=== PATIENT | male | born 1975 | race Caucasian/White ===

== ENCOUNTER 2021-03-20 11:54 | Inpatient (IN) ==
[2021-03-20] MEDS ORDERED: 0.9 % SODIUM CHLORIDE 1,000 ML IV ONE (12:14)
--- NOTE | 2021-03-20 12:45 | XRay Report ---
INDICATION: SOB, covid positive TECHNIQUE: AP portable chest x-ray COMPARISON: None FINDINGS: Lungs:Bilateral poorly defined pulmonary parenchymal infiltrates. Appearance is consistent with interstitial pneumonia and covid is most likely. No dense consolidation. No pulmonary parenchymal mass. Heart, vascular:No significant cardiomegaly. Pulmonary vascularity is normal. No pulmonary edema or pulmonary congestion Mediastinum, juan miguel:No mediastinal widening. No hilar mass Pleura:No pleural fluid. No pleural-based mass or calcification. There is elevation of the right hemidiaphragm Skeletal:Negative. IMPRESSION: Bilateral poorly defined pulmonary parenchymal infiltrates consistent with covid pneumonia Interpreted and Authenticated by: Roland Winters 03/20/21
--- NOTE | 2021-03-20 12:50 | Emergency Department Note ---
SOB HPI General Chief Complaint: Shortness of Breath/Dyspnea Stated Complaint: short of breath Time Seen by Provider: 03/20/21 12:14 Source: patient Mode of arrival: ambulatory Limitations: no limitations History of Present Illness HPI Narrative: Narrative: 45-year-old male presents emergency department with complaints of shortness of breath on exertion. He was diagnosed with COVID-19 on March 13, 2021 since other people in his family had tested positive. 2 days later on March 15 he started to develop a severe headache. That lasted about 2 days and had been doing okay and then this morning he woke up with a pressure in his chest which only manifest when he exerts himself by walking around. He also has developed a dry cough. He endorses anorexia. Otherwise he denies any other symptoms including feeling fever at home, chest pain, abdominal pain, nausea, vomiting, diarrhea, productive cough, hematemesis, calf pain. He takes multivitamins but does not take any prescription medication. He has not been to a primary care provider and about 14 years or so. Did not receive a COVID-19 vaccine. Related Data Home Medications Medication Instructions Recorded Confirmed No Known Home Meds 03/20/21 03/20/21 Allergies Allergy/AdvReac Type Severity Reaction Status Date / Time No Known Drug Allergies Allergy Verified 03/20/21 18:07 Review of Systems ROS ROS Narrative: Narrative: All systems ED: reviewed and negative except as stated. Cardiovascular: Reports dyspnea on exertion PFSH Narrative Patient History Narrative: Narrative: Medical/Surgical/Family History All Active Problems (Updated 03/20/21 @ 16:53 by David Reyes PA-C) Hypoxia (Acute) Pneumonia due to COVID-19 virus (Acute) Social History Smoking Status: Never smoker Exam Narrative Narrative: Narrative: General Limitations: no limitations Respiratory Respiratory: Present other (Bilateral lower lobe Rales. No respiratory distress on 4 L nasal cannula.) Cardiovascular Cardiovascular: Present regular rate, normal rhythm and normal heart sounds Adbominal Abdominal: Present other (Abdomen is soft, nontender no rebound tenderness no guarding) Extremities Extremities: Present other (There is no calf tenderness with palpation. No unilateral leg swelling or erythema) Neurological Neurological: Present alert and oriented X3 Psychiatric Psychiatric: Present normal affect and normal mood Skin Skin: Present warm (WNL), dry and normal color Course Vital Signs Vital signs: Vital Signs Temperature 102.1 F H 03/20/21 11:56 Pulse Rate 121 H 03/20/21 11:56 Respiratory Rate 20 03/20/21 11:56 Blood Pressure 165/97 03/20/21 11:56 Pulse Oximetry (%) 88 L 03/20/21 11:56 Temperature 97.0 F 03/20/21 17:34 Pulse Rate 102 H 03/20/21 17:43 Respiratory Rate 14 03/20/21 17:43 Blood Pressure 137/95 03/20/21 17:34 Pulse Oximetry (%) 94 03/20/21 17:43 [facility] MDM Narrative Medical decision making narrative: Narrative: Since patient requires additional supplemental oxygen he is not a candidate for the monoclonal antibody treatment. With needing 4 L to maintain at 93% he is defined as at least moderate severity disease and he warrants hospitalization. I have ordered dexamethasone and remdesivir. Chest x-ray shows bilateral poorly defined pulmonary parenchymal infiltrates consistent with covid pneumonia. White blood cell count normal Procalcitonin is elevated that could suggest a bacterial infection-I will leave it up to the hospitalist if he wants to do antibiotics Lactate is normal no signs of sepsis CMP sodium correction for hypoglycemia is 130 with the Pooja correction. I spoke with the hospitalist who said that he would be happy to admit the patient when they had a bed available. He will in the meantime come down to evaluate the patient in the emergency department. Patient will be admitted for further evaluation and treatment for Covid pneumonia. Lab Data Result diagrams: 03/20/21 12:38 03/20/21 13:50 Labs: Lab Results 03/20/21 03/20/21 03/20/21 Range/Units 12:38 12:38 12:38 WBC 5.7 (4.5-11.0) K/mcL RBC 4.99 (4.50-5.90) M/mcL Hgb 15.8 (13.5-16.5) g/dL Hct 42.5 (41.0-55.0) % MCV 85.2 (80.0-100.0) fL MCH 31.7 (26.0-34.0) pg MCHC 37.2 H (31.0-36.0) g/dL RDW 11.2 L (11.5-14.5) % Plt Count 153 (140-440) K/mcL MPV 11.1 H (7.4-10.4) fL Neut % (Auto) 85.5 H (38.0-78.0) % Lymph % (Auto) 8.3 L (15.0-49.0) % [place] % (Auto) 6.0 (1.0-12.0) % Eos % (Auto) 0 (0.0-7.0) % Baso % (Auto) 0.2 (0.0-2.0) % Lymph # (Auto) 0.47 L (1.50-4.80) K/mcL [place] # (Auto) 0.34 (0.10-0.90) K/mcL Eos # (Auto) 0 (0.00-0.70) K/mcL Baso # (Auto) 0.01 (0.00-0.20) K/mcL Absolute Neutrophils 4.83 (1.80-8.00) K/mcL PT INR D-Dimer Sodium TNP Potassium TNP Chloride TNP Carbon Dioxide TNP Anion Gap TNP BUN TNP Creatinine TNP GFR Calculation TNP Glucose TNP Hemoglobin A1c (4.0-6.0) % Hgb Estim Average Glucose mg/dL Osmolality (280-300) mOSM/kg Calcium TNP Ferritin (30.0-400.0) ng/mL Total Bilirubin TNP AST TNP ALT TNP Alkaline Phosphatase TNP Total Creatine Kinase (24-195) U/L Troponin T C-Reactive Protein (0.03-0.80) mg/dL NT-Pro-B Natriuret Pep 28.7 (<125.0) pg/mL Total Protein TNP Albumin TNP Globulin TNP Albumin/Globulin Ratio TNP Procalcitonin 0.27 H (<0.10) ng/mL TSH (0.27-5.01) uIU/mL 03/20/21 03/20/21 03/20/21 Range/Units 12:38 12:38 12:38 WBC (4.5-11.0) K/mcL RBC (4.50-5.90) M/mcL Hgb (13.5-16.5) g/dL Hct (41.0-55.0) % MCV (80.0-100.0) fL MCH (26.0-34.0) pg MCHC (31.0-36.0) g/dL RDW (11.5-14.5) % Plt Count (140-440) K/mcL MPV (7.4-10.4) fL Neut % (Auto) (38.0-78.0) % Lymph % (Auto) (15.0-49.0) % [place] % (Auto) (1.0-12.0) % Eos % (Auto) (0.0-7.0) % Baso % (Auto) (0.0-2.0) % Lymph # (Auto) (1.50-4.80) K/mcL [place] # (Auto) (0.10-0.90) K/mcL Eos # (Auto) (0.00-0.70) K/mcL Baso # (Auto) (0.00-0.20) K/mcL Absolute Neutrophils (1.80-8.00) K/mcL PT TNP INR TNP D-Dimer TNP Sodium Potassium Chloride Carbon Dioxide Anion Gap BUN Creatinine GFR Calculation Glucose Hemoglobin A1c 10.9 H (4.0-6.0) % Hgb Estim Average Glucose 266 mg/dL Osmolality (280-300) mOSM/kg Calcium Ferritin 1174.0 H (30.0-400.0) ng/mL Total Bilirubin AST ALT Alkaline Phosphatase Total Creatine Kinase 129 (24-195) U/L Troponin T TNP C-Reactive Protein 12.90 H (0.03-0.80) mg/dL NT-Pro-B Natriuret Pep (<125.0) pg/mL Total Protein Albumin Globulin Albumin/Globulin Ratio Procalcitonin (<0.10) ng/mL TSH 0.60 (0.27-5.01) uIU/mL 03/20/21 03/20/21 03/20/21 Range/Units 12:38 13:50 13:50 WBC (4.5-11.0) K/mcL RBC (4.50-5.90) M/mcL Hgb (13.5-16.5) g/dL Hct (41.0-55.0) % MCV (80.0-100.0) fL MCH (26.0-34.0) pg MCHC (31.0-36.0) g/dL RDW (11.5-14.5) % Plt Count (140-440) K/mcL MPV (7.4-10.4) fL Neut % (Auto) (38.0-78.0) % Lymph % (Auto) (15.0-49.0) % [place] % (Auto) (1.0-12.0) % Eos % (Auto) (0.0-7.0) % Baso % (Auto) (0.0-2.0) % Lymph # (Auto) (1.50-4.80) K/mcL [place] # (Auto) (0.10-0.90) K/mcL Eos # (Auto) (0.00-0.70) K/mcL Baso # (Auto) (0.00-0.20) K/mcL Absolute Neutrophils (1.80-8.00) K/mcL PT INR D-Dimer Sodium 126 L Potassium 3.5 Chloride 93 L Carbon Dioxide 18 L Anion Gap 15.0 BUN 11 Creatinine 0.5 L GFR Calculation 129 Glucose 247 H Hemoglobin A1c (4.0-6.0) % Hgb Estim Average Glucose mg/dL Osmolality 272 L (280-300) mOSM/kg Calcium 7.7 L Ferritin (30.0-400.0) ng/mL Total Bilirubin 0.5 AST 31 ALT 27 Alkaline Phosphatase 62 Total Creatine Kinase (24-195) U/L Troponin T < 0.01 C-Reactive Protein (0.03-0.80) mg/dL NT-Pro-B Natriuret Pep 28.1 (<125.0) pg/mL Total Protein 5.9 Albumin 3.2 Globulin 2.7 Albumin/Globulin Ratio 1.2 Procalcitonin (<0.10) ng/mL TSH (0.27-5.01) uIU/mL 03/20/21 Range/Units 16:28 WBC (4.5-11.0) K/mcL RBC (4.50-5.90) M/mcL Hgb (13.5-16.5) g/dL Hct (41.0-55.0) % MCV (80.0-100.0) fL MCH (26.0-34.0) pg MCHC (31.0-36.0) g/dL RDW (11.5-14.5) % Plt Count (140-440) K/mcL MPV (7.4-10.4) fL Neut % (Auto) (38.0-78.0) % Lymph % (Auto) (15.0-49.0) % [place] % (Auto) (1.0-12.0) % Eos % (Auto) (0.0-7.0) % Baso % (Auto) (0.0-2.0) % Lymph # (Auto) (1.50-4.80) K/mcL [place] # (Auto) (0.10-0.90) K/mcL Eos # (Auto) (0.00-0.70) K/mcL Baso # (Auto) (0.00-0.20) K/mcL Absolute Neutrophils (1.80-8.00) K/mcL PT 13.7 INR 1.0 D-Dimer 1.32 H Sodium Potassium Chloride Carbon Dioxide Anion Gap BUN Creatinine GFR Calculation Glucose Hemoglobin A1c (4.0-6.0) % Hgb Estim Average Glucose mg/dL Osmolality (280-300) mOSM/kg Calcium Ferritin (30.0-400.0) ng/mL Total Bilirubin AST ALT Alkaline Phosphatase Total Creatine Kinase (24-195) U/L Troponin T C-Reactive Protein (0.03-0.80) mg/dL NT-Pro-B Natriuret Pep (<125.0) pg/mL Total Protein Albumin Globulin Albumin/Globulin Ratio Procalcitonin (<0.10) ng/mL TSH (0.27-5.01) uIU/mL EKG Data EKG #1: EKG results narrative: ECG shows a sinus tachycardia, left axis deviation, normal SC interval narrow QRS normal QTC. There is no signs of Brugada, Dvehl-Addmpjzoj-Dedrm or HOCM. There is no ST segment deviations or hyperacute T waves. My interpretation is sinus tachycardia. Discharge Plan Patient/Caregiver Discharge Instructions Pt seen by RISK CONTROL DIRECTOR/PA only: Yes Clinical Impression: Hypoxia, Pneumonia due to COVID-19 virus Patient Disposition: Xfer As Inpt ([facility]) Condition: Fair Discharge Date/Time: 03/20/21 17:20
[2021-03-20] MEDS ORDERED: DEXAMETHASONE 10 MG/ML VIAL IV ONE (13:01)
[2021-03-20] MEDS ORDERED: REMDESIVIR 200 MG in 0.9 % SODIUM CHLORIDE 250 ML IV ONE (13:01)
[2021-03-20 13:19] LABS: Basophils # (Auto) 0.01 K/mcL (0.00-0.20); Basophils % (Auto) 0.2 % (0.0-2.0); Eosinophils # (Auto) 0 K/mcL (0.00-0.70); Eosinophils % (Auto) 0 % (0.0-7.0); Hematocrit 42.5 % (41.0-55.0); Hemoglobin 15.8 g/dL (13.5-16.5); Lymphocytes # (Auto) 0.47 K/mcL (1.50-4.80); Lymphocytes % (Auto) 8.3 % (15.0-49.0); Mean Cell Volume 85.2 fL (80.0-100.0); Mean Corpuscular HGB Conc 37.2 g/dL (31.0-36.0); Mean Platelet Volume 11.1 fL (7.4-10.4); Monocytes # (Auto) 0.34 K/mcL (0.10-0.90); Neutrophils % (Auto) 85.5 % (38.0-78.0); Platelet Count 153 K/mcL (140-440); RBC 4.99 M/mcL (4.50-5.90); Red Cell Distribution Width 11.2 % (11.5-14.5); WBC 5.7 K/mcL (4.5-11.0)
[2021-03-20 13:38] LABS: proBNP 28.7 pg/mL (<125.0)
[2021-03-20 14:51] LABS: proBNP 28.1 pg/mL (<125.0)
[2021-03-20 14:54] LABS: ALT/SGPT 27 U/L (<40); AST/SGOT 31 U/L (<40); Albumin 3.2 gm/dL (3.2-5.2); Albumin/Globulin Ratio 1.2 (1.0-2.3); Alkaline Phosphatase 62 U/L (39-117); Bilirubin,Total 0.5 mg/dL (0.1-1.0); Blood Urea Nitrogen 11 mg/dL (6-20); Calcium 7.7 mg/dL (8.6-10.4); Carbon Dioxide 18 mmol/L (22-30); Chloride 93 mmol/L (96-108); Globulin 2.7 gm/dL (2.2-3.7); Glomerular Filtration Rate 129; Glucose 247 mg/dL (70-105)
--- NOTE | 2021-03-20 15:35 | Internal Med History&Physical ---
HPI History of Present Illness Patient information: Note initiated : 03/20/21 at 3:33 pm Service Date, if different from initiated Date: [] Patient: Roland Lamas 45 y/o M admitted on for short of breath. Chief Complaint: [] History of present illness: Mr. Lamas is a 45 year old M Patient presents to ED with fever cough shortness of breath. He was diagnosed on March 13 with COVID-19 and has other family members tested positive as well. Several days later developed headache and in the past few days has the previously mentioned complaints. In the ED is on 4 L of oxygen with sats mid 90s. Labs also show hyponatremia and hyperglycemia. Patient denies history of diabetes. Also hypertensive and denies history of hypertension. The patient has not seen a PCP in 14 years. No leukocytosis but does have a mildly elevated procalcitonin. Review of Systems: Pertinent positives as above. Denies nausea/vomiting/chest or abdominal pain/diarrhea. Remaining 10 point review of system reviewed negative. PFSH PFSH All Active Problems (Updated 03/20/21 @ 16:53 by David Reyes PA-C) Hypoxia (Acute) Pneumonia due to COVID-19 virus (Acute) MEDS/ALLERGIES Home Medications and Allergies Allergies Allergy/AdvReac Type Severity Reaction Status Date / Time No Known Drug Allergies Allergy Verified 03/20/21 12:01 EXAM Constitutional Vitals: Temp Pulse Resp BP Pulse Ox 102.1 F H 116 H 16 152/84 94 03/20/21 11:56 03/20/21 14:36 03/20/21 14:36 03/20/21 14:30 03/20/21 14:36 Exam: General: Alert, Awake, No acute Distress Eyes/N/T: EOMI, PERRL, Head/Neck: neck supple, normocephalic atraumatic CV: RRR, No murmurs, normal s1/s2 Pulm: Mild fine rales b/l, no wheezing Abd: soft, nontender, +BS x4 Ext: no clubbing/cyanosis/edema Neuro: Alert, no focal deficits, moves all extremities, CN 2-12 grossly intact, symmetrical strength b/l upper/lower, sensations intact b/l upper/lower Skin: warm/dry DATA Data Completed and Pending Labs: Labs from last 24 hours 03/20/21 03/20/21 03/20/21 13:50 13:50 12:38 WBC RBC Hgb Hct MCV MCH MCHC RDW Plt Count MPV Neut % (Auto) Lymph % (Auto) [place] % (Auto) Eos % (Auto) Baso % (Auto) Lymph # (Auto) [place] # (Auto) Eos # (Auto) Baso # (Auto) Absolute Neutrophils Sodium 126 L Potassium 3.5 Chloride 93 L Carbon Dioxide 18 L Anion Gap 15.0 BUN 11 Creatinine 0.5 L GFR Calculation 129 Glucose 247 H Calcium 7.7 L Total Bilirubin 0.5 AST 31 ALT 27 Alkaline Phosphatase 62 Troponin T < 0.01 TNP NT-Pro-B Natriuret Pep 28.1 Total Protein 5.9 Albumin 3.2 Globulin 2.7 Albumin/Globulin Ratio 1.2 Procalcitonin 03/20/21 03/20/21 03/20/21 12:38 12:38 12:38 WBC 5.7 RBC 4.99 Hgb 15.8 Hct 42.5 MCV 85.2 MCH 31.7 MCHC 37.2 H RDW 11.2 L Plt Count 153 MPV 11.1 H Neut % (Auto) 85.5 H Lymph % (Auto) 8.3 L [place] % (Auto) 6.0 Eos % (Auto) 0 Baso % (Auto) 0.2 Lymph # (Auto) 0.47 L [place] # (Auto) 0.34 Eos # (Auto) 0 Baso # (Auto) 0.01 Absolute Neutrophils 4.83 Sodium TNP Potassium TNP Chloride TNP Carbon Dioxide TNP Anion Gap TNP BUN TNP Creatinine TNP GFR Calculation TNP Glucose TNP Calcium TNP Total Bilirubin TNP AST TNP ALT TNP Alkaline Phosphatase TNP Troponin T NT-Pro-B Natriuret Pep 28.7 Total Protein TNP Albumin TNP Globulin TNP Albumin/Globulin Ratio TNP Procalcitonin 0.27 H A/P Narrative A/P Narrative: A: *Covid pneumonia: *Acute hypoxic respiratory failure: -on 4L O2 in ED *Hyponatremia: *Hyperglycemia & Diabetes (new diagnosis): No history of diabetes -A1c 10.9 -has not seen a pcp in 14-years *Hypertension: Undiagnosed -has not seen a pcp in 14-years P: -Rem/Dex -empiric abx -O2 supp, wean -prone positioning -IS/Acapella/RT, prn nebs -check inflammatory labs -SSI, start metformin, DM education, may need insulin therapy -monitor BP, may need med at d/c - -establish with PCP -ppx: lovenox Time Spent With Patient Time: Total time spent is greater than 50% in coordination of care (as documented) at patient's floor/unit and/or counseling patient:
[2021-03-20 16:23] LABS: C-Reactive Protein 12.9 mg/dL (0.03-0.80); Thyroid Stimulating Hormone 0.6 uIU/mL (0.27-5.01)
[2021-03-20 17:08] LABS: Prothrombin Time 13.7 sec (11.9-14.5)
[2021-03-20 17:10] LABS: Hemoglobin A1C 10.9 % Hgb (4.0-6.0)
[2021-03-20] MEDS ORDERED: INSULIN LISPRO 1 UNIT/0.01 ML UNIT SQ SCH (17:20)
[2021-03-20] MEDS ORDERED: CALCIUM GLUCONATE 4.65 MEQ in DEXTROSE 5% IN WATER 50 ML IV ONE (17:20)
[2021-03-20] MEDS ORDERED: cefTRIAXone 2 GM in DEXTROSE 5% IN WATER 50 ML IV SCH ×2 (17:20→18:00)
[2021-03-20] MEDS ORDERED: 0.9 % SODIUM CHLORIDE 1,000 ML IV SCH (17:20)
[2021-03-20] MEDS ORDERED: DEXTROSE 31 GM ORAL.SUSP PO PRN (17:20)
[2021-03-20] MEDS ORDERED: ONDANSETRON 4 MG/2 ML VIAL IV PRN (17:20)
[2021-03-20] MEDS ORDERED: REMDESIVIR 100 MG in 0.9 % SODIUM CHLORIDE 250 ML IV SCH (17:20)
[2021-03-20] MEDS ORDERED: ACETAMINOPHEN 325 MG TABLET PO PRN (17:20)
[2021-03-20] MEDS ORDERED: POTASSIUM CHLORIDE 40 MEQ in DEXTROSE 5% IN WATER 500 ML IV PRN (17:20)
[2021-03-20] MEDS ORDERED: POLYETHYLENE GLYCOL 3350 17 GM PACKET PO PRN (17:20)
[2021-03-20] MEDS ORDERED: MAGNESIUM SULFATE 2 GM/50 ML BAG IV PRN (17:20)
[2021-03-20] MEDS ORDERED: POTASSIUM CHLORIDE 20 MEQ TABLET PO PRN (17:20)
[2021-03-20] MEDS ORDERED: SENNOSIDES 1 TABLET PO PRN (17:20)
[2021-03-20] MEDS ORDERED: AZITHROMYCIN 500 MG in DEXTROSE 5% IN WATER 250 ML IV SCH (17:20)
[2021-03-20] MEDS ORDERED: DEXTROSE 50% 50 ML VIAL IV PRN (17:20)
[2021-03-20] MEDS ORDERED: IPRATROPIUM/ALBUTEROL 3 ML AMPUL.NEB NEB PRN (17:20)
--- NOTE | 2021-03-20 17:29 | EKG ---
[facility] Test Date: 2021-03-20 Pat Name: Roland Lamas Department: ED Room: Gender: Male Manager Of Radiology: TAMARA : 1975 Requested By: Patrice Galloway Order Number: [id number] Reading MD: Mynor Britt M.D. Measurements Intervals [address] Rate: 119 P: 46 DC: 180 QRS: -52 QRSD: 90 T: 36 QT: 312 QTc: 439 Interpretive Statements SINUS TACHYCARDIA LEFT ANTERIOR FASCICULAR BLOCK CONSIDER ANTERIOR INFARCT NO PRIOR TRACING FOR COMPARISON ABNORMAL ECG Electronically Signed On 03-20-2021 17:29:07 PDT by Mynor Britt M.D. /store/[email or web address]/[id number]
[2021-03-20] MEDS: AZITHROMYCIN 500 MG in DEXTROSE 5% IN WATER 250 ML IV SCH (17:45)
[2021-03-20] MEDS: INSULIN LISPRO 1 UNIT/0.01 ML UNIT SQ SCH ×2 (17:55→21:29)
[2021-03-20] MEDS: POTASSIUM CHLORIDE 20 MEQ TABLET PO PRN (21:20)
[2021-03-20] MEDS: 0.9 % SODIUM CHLORIDE 10 ML SYRINGE IV SCH (21:52)
[2021-03-21] MEDS: INSULIN LISPRO 1 UNIT/0.01 ML UNIT SQ SCH ×6 (01:10→21:05)
[2021-03-21] MEDS: 0.9 % SODIUM CHLORIDE 10 ML SYRINGE IV SCH ×3 (05:36→20:56)
[2021-03-21 07:08] LABS: Hemoglobin 14.1 g/dL (13.5-16.5); Mean Cell Volume 87.5 fL (80.0-100.0); Mean Corpuscular HGB Conc 35.3 g/dL (31.0-36.0); Mean Platelet Volume 10.3 fL (7.4-10.4); Platelet Count 151 K/mcL (140-440); RBC 4.57 M/mcL (4.50-5.90); Red Cell Distribution Width 11.5 % (11.5-14.5); WBC 4.5 K/mcL (4.5-11.0)
--- NOTE | 2021-03-21 07:37 | Internal Med Progress Note ---
SUBJECTIVE Subjective Patient information: Note initiated : 03/21/21 at 7:33 am Service Date, if different from initiated Date: [] Patient: Roland Lamas 45 y/o M admitted on 03/20/21 for short of breath. Chief Complaint: [] Interval history: History of present illness: Mr. Lamas is a 45 year old M Patient presents to ED with fever cough shortness of breath. He was diagnosed on March 13 with COVID-19 and has other family members tested positive as well. Several days later developed headache and in the past few days has the previously mentioned complaints. In the ED is on 4 L of oxygen with sats mid 90s. Labs also show hyponatremia and hyperglycemia. Patient denies history of diabetes. Also hypertensive and denies history of hypertension. The patient has not seen a PCP in 14 years. No leukocytosis but does have a mildly elevated procalcitonin. 8/ states he feels about the same as yesterday. On 3.5 L nasal cannula but desats with exertion. Minimal cough. Newly diagnosed diabetes. Review of Systems: denies headache/fever/chills/nausea/vomiting/chest or abdominal pain/diarrhea. Otherwise see above. Constitutional Vitals: Vital Signs Temp Pulse Resp BP Pulse Ox 97.2 F 77 14 142/80 92 03/21/21 01:01 03/21/21 05:01 03/21/21 05:01 03/21/21 05:01 03/21/21 05:01 Period Temp Pulse Resp BP Sys/[place] Pulse Ox Last 24 Hr 97.0 F-102.1 F 77-122 10-37 112-172/76-103 88-96 Intake and Output 03/20/21 03/21/21 03/21/21 21:59 05:59 13:59 Intake Total 1760 850 Output Total 1500 700 Balance 260 150 Weight 119.295 kg Intake & Output: Intake & Output 03/20/21 03/21/21 03/21/21 21:59 05:59 13:59 Intake Total 1760 850 Output Total 1500 700 Balance 260 150 Weight 119.295 kg Intake: IV 1610 Sodium Chloride 0.9% 1,000 ml @ 1000 Wide Open IV .Q0M ONE Rx#: [id number] Zithromax 500 mg In Dextrose 5% 250 in Water 250 ml @ 250 mls/hr IV DAILY MANJIT Rx#:[id number] Calcium Gluconate 4.65 Meq In 60 Dextrose 5% in Water 50 ml @ 100 mls/hr IV ONCE ONE Rx#: [id number] Veklury 200 mg In Sodium 250 Chloride 0.9% 250 ml @ 500 mls/ hr IV ONCE ONE Rx#:[id number] Rocephin 2 gm In Dextrose 5% in 50 Water 50 ml @ 100 mls/hr IV DAILY [facility] Rx#:[id number] Oral 150 850 Output: Void Amount 1500 700 Other: Urine Appearance Clear Clear Urine Color Pale Pale Urine Odor Normal Normal Stool Size Moderate Stool Color Brown Stool Consistency Soft # Bowel Movements 1 # of times incontinent of 0 Bowels Exam: General: Alert, Awake, No acute Distress Eyes/N/T: EOMI, , Head/Neck: neck supple, CV: RRR, No murmurs, Pulm: Mild fine rales b/l, no wheezing Abd: soft, nontender, +BS x4 Ext: no clubbing/cyanosis/edema Neuro: Alert, no focal deficits, moves all extremities, Skin: warm/dry OBJ DATA Labs CBC & Chem 7: 03/21/21 05:31 03/21/21 05:30 Labs: Abnormal Lab Results 03/21/21 03/20/21 03/20/21 05:31 16:28 13:50 Hct 40.0 L MCHC RDW MPV Neut % (Auto) Lymph % (Auto) Lymph # (Auto) D-Dimer 1.32 H Sodium 126 L Chloride 93 L Carbon Dioxide 18 L Creatinine 0.5 L Glucose 247 H Hemoglobin A1c Osmolality Calcium 7.7 L Ferritin C-Reactive Protein Procalcitonin 03/20/21 03/20/21 03/20/21 12:38 12:38 12:38 Hct MCHC RDW MPV Neut % (Auto) Lymph % (Auto) Lymph # (Auto) D-Dimer Sodium Chloride Carbon Dioxide Creatinine Glucose Hemoglobin A1c 10.9 H Osmolality 272 L Calcium Ferritin 1174.0 H C-Reactive Protein 12.90 H Procalcitonin 0.27 H 03/20/21 12:38 Hct MCHC 37.2 H RDW 11.2 L MPV 11.1 H Neut % (Auto) 85.5 H Lymph % (Auto) 8.3 L Lymph # (Auto) 0.47 L D-Dimer Sodium Chloride Carbon Dioxide Creatinine Glucose Hemoglobin A1c Osmolality Calcium Ferritin C-Reactive Protein Procalcitonin Meds: Medications Acetaminophen (Acetaminophen 325 Mg Tablet) 650 mg PO Q6HP PRN PRN Reason: PAIN/FEVER > 101 Albuterol/Ipratropium (Ipratropium/Albuterol 3 Ml Ampul.Neb) 3 ml NEB Q4HP PRN PRN Reason: Shortness Of Breath Dexamethasone (Dexamethasone 4 Mg Tablet) 6 mg PO DAILY [facility] Dextrose (Dextrose 50% 50 Ml Vial) 0 ml IV UD PRN PRN Reason: Hypoglycemia Diagnostic Test (Pha) (Accu-Chek 1 Each Strip) 1 each FS Q4H [facility] Last Admin: 03/21/21 05:35 Dose: 1 each Documented by: Enoxaparin Sodium (Enoxaparin 40 Mg/0.4 Ml Syringe) 40 mg SQ DAILY [facility] Glucose (Dextrose 31 Gm Oral.Susp) 15 gm PO PRN PRN PRN Reason: Hypoglycemia Potassium Chloride 40 meq/ (Dextrose) 520 mls @ 130 mls/hr IV UD PRN PRN Reason: Potassium < 3 Magnesium Sulfate (Magnesium Sulfate) 2 gm in 50 mls @ 50 mls/hr IV UD PRN PRN Reason: Magnesium </= 1.6 Azithromycin 500 mg/ Dextrose 250 mls @ 250 mls/hr IV DAILY [facility]; Protocol Stop: 03/22/21 09:59 Last Infusion: 03/20/21 19:34 Dose: Infused Documented by: REMDESIVIR 100 mg/ Sodium (Chloride) 250 mls @ 500 mls/hr IV DAILY@1100 MANJIT Stop: 03/24/21 11:29 Ceftriaxone Sodium 2 gm/ (Dextrose) 50 mls @ 100 mls/hr IV DAILY [facility]; Protocol Insulin Human Lispro (Insulin Lispro 1 Unit/0.01 Ml Unit) 0 unit SQ Q4H [facility]; Protocol Last Admin: 03/21/21 05:35 Dose: 6 unit Documented by: Labetalol HCl (Labetalol 5 Mg/Ml Ml) 0 mg IV Q2HP PRN PRN Reason: Hypertension Metformin HCl (Metformin 500 Mg Tab.Xl.24h) [facility] Ondansetron HCl (Ondansetron 4 Mg/2 Ml Vial) 4 mg IV Q4HP PRN PRN Reason: Nausea And Vomiting Polyethylene Glycol (Polyethylene Glycol 3350 17 Gm Packet) 17 gm PO DAILYP PRN PRN Reason: Constipation Potassium Chloride (Potassium Chloride 20 Meq Tablet) 40 meq PO UD PRN PRN Reason: Potssium is 3-3.5 Last Admin: 03/20/21 21:20 Dose: 40 meq Documented by: Potassium Chloride (Potassium Chloride 20 Meq Tablet) 40 meq PO UD PRN PRN Reason: Potassium < 3 Senna (Sennosides 1 Tablet) 2 tab PO DAILYP PRN PRN Reason: Constipation Sodium Chloride (0.9 % Sodium Chloride 10 Ml Syringe) 10 ml IV Q8 MANJIT Last Admin: 03/21/21 05:36 Dose: Not Given Documented by: Zinc Sulfate (Zinc Sulfate 50 Mg Capsule) 50 mg PO DAILY MANJIT A/P Narrative A/P Narrative: A: *Covid pneumonia: *Acute hypoxic respiratory failure: -on 3.5L N[place] *Hyponatremia: improved *Hyperglycemia & Diabetes (new diagnosis): No history of diabetes -A1c 10.9 -has not seen a pcp in 14-years *Hypertension: Undiagnosed -has not seen a pcp in 14-years P: -Rem/Dex -prone positioning -empiric abx given elevation in PCT -O2 supp, wean -IS/Acapella/RT, prn nebs -check inflammatory labs -SSI, start metformin, DM education, may need insulin therapy -monitor BP, may need med at d/c - -establish with PCP -ppx: lovenox Time Spent With Patient Time: Total time spent is greater than 50% in coordination of care (as documented) at patient's floor/unit and/or counseling patient:
[2021-03-21 07:55] LABS: ALT/SGPT 29 U/L (<40); AST/SGOT 30 U/L (<40); Albumin 3.3 gm/dL (3.2-5.2); Albumin/Globulin Ratio 1.2 (1.0-2.3); Alkaline Phosphatase 63 U/L (39-117); Bilirubin,Direct < 0.2 mg/dL (0-0.3); Bilirubin,Total 0.4 mg/dL (0.1-1.0); Blood Urea Nitrogen 13 mg/dL (6-20); Calcium 8.4 mg/dL (8.6-10.4); Carbon Dioxide 19 mmol/L (22-30); Chloride 99 mmol/L (96-108); Globulin 2.8 gm/dL (2.2-3.7); Glomerular Filtration Rate 129; Glucose 228 mg/dL (70-105); Lactate Dehydrogenase 534 U/L (135-225); Phosphorous 2.4 mg/dL (2.5-4.5); Triglycerides 57 mg/dL (<150); Uric Acid 6.3 mg/dL (2.5-8.0)
[2021-03-21] MEDS ORDERED: metFORMIN 500 MG TAB.XL.24H PO SCH (08:00)
[2021-03-21] MEDS: DEXAMETHASONE 4 MG TABLET PO SCH (08:06)
[2021-03-21] MEDS: cefTRIAXone 2 GM in DEXTROSE 5% IN WATER 50 ML IV SCH (08:06)
[2021-03-21] MEDS: ZINC SULFATE 50 MG CAPSULE PO SCH (08:06)
[2021-03-21] MEDS ORDERED: ENOXAPARIN 40 MG/0.4 ML SYRINGE SQ SCH (09:00)
[2021-03-21] MEDS ORDERED: INSULIN GLARGINE, HUMAN 1 UNIT/0.01 ML SQ SCH (09:10)
[2021-03-21 10:09] LABS: Band Neutrophils % 6 % (0-10); Lymphocytes % 5 % (15-49); Monocytes % (Manual) 4 % (1-12); Platelet Estimate NORMAL (Normal); RBC Morphology NORMAL (Normal); Segmented Neutrophils % 85 % (38-78)
[2021-03-21] MEDS: NEUTRA PHOS 1 PACKET PO SCH ×2 (10:47→20:56)
[2021-03-21] MEDS: AZITHROMYCIN 500 MG in DEXTROSE 5% IN WATER 250 ML IV SCH ×2 (10:47→11:41)
[2021-03-21] MEDS: REMDESIVIR 100 MG in 0.9 % SODIUM CHLORIDE 250 ML IV SCH (11:41)
[2021-03-22] MEDS: 0.9 % SODIUM CHLORIDE 10 ML SYRINGE IV SCH ×3 (05:25→21:26)
[2021-03-22 06:52] LABS: ALT/SGPT 24 U/L (<40); AST/SGOT 25 U/L (<40); Albumin 2.9 gm/dL (3.2-5.2); Albumin/Globulin Ratio 1.1 (1.0-2.3); Alkaline Phosphatase 61 U/L (39-117); Bilirubin,Direct < 0.2 mg/dL (0-0.3); Bilirubin,Total 0.3 mg/dL (0.1-1.0); Blood Urea Nitrogen 16 mg/dL (6-20); Calcium 8.3 mg/dL (8.6-10.4); Carbon Dioxide 22 mmol/L (22-30); Chloride 99 mmol/L (96-108); Globulin 2.7 gm/dL (2.2-3.7); Glomerular Filtration Rate 129; Glucose 230 mg/dL (70-105); Lactate Dehydrogenase 578 U/L (135-225); Phosphorous 3.1 mg/dL (2.5-4.5); Triglycerides 68 mg/dL (<150)
--- NOTE | 2021-03-22 08:16 | Internal Med Progress Note ---
SUBJECTIVE Subjective Patient information: Note initiated : 03/22/21 at 8:11 am Service Date, if different from initiated Date: [] Patient: Roland Lamas 45 y/o M admitted on 03/20/21 for short of breath. Chief Complaint: [] Interval history: History of present illness: Mr. Lamas is a 45 year old M Patient presents to ED with fever cough shortness of breath. He was diagnosed on March 13 with COVID-19 and has other family members tested positive as well. Several days later developed headache and in the past few days has the previously mentioned complaints. In the ED is on 4 L of oxygen with sats mid 90s. Labs also show hyponatremia and hyperglycemia. Patient denies history of diabetes. Also hypertensive and denies history of hypertension. The patient has not seen a PCP in 14 years. No leukocytosis but does have a mildly elevated procalcitonin. 03/21 states he feels about the same as yesterday. On 3.5 L nasal cannula but desats with exertion. Minimal cough. Newly diagnosed diabetes. 03/22 Patient appears comfortable and says he feels about the same. Has some coughing when he takes a deep breath but otherwise minimal cough. Shortness of breath about the same. He is on high flow nasal cannula at 8 to 9 L. Review of Systems: denies headache/fever/chills/nausea/vomiting/chest or abdominal paindiarrhea. Otherwise see above. Constitutional Vitals: Vital Signs Temp Pulse Resp BP Pulse Ox 98.2 F 84 21 139/81 93 03/22/21 04:00 03/22/21 06:02 03/22/21 06:02 03/22/21 06:00 03/22/21 06:02 Period Temp Pulse Resp BP Sys/Jurado Pulse Ox Last 24 Hr 98.2 F-98.7 F 75-101 10-23 137-158/73-86 88-98 Intake and Output 03/21/21 03/22/21 03/22/21 21:59 05:59 13:59 Intake Total 250 1100 Output Total 1999 200 Balance -1750 900 Weight 118.887 kg Intake & Output: Intake & Output 03/21/21 03/22/21 03/22/21 21:59 05:59 13:59 Intake Total 250 1100 Output Total 1999 200 Balance -1750 900 Weight 118.887 kg Intake: IV 250 Veklury 100 mg In Sodium 250 Chloride 0.9% 250 ml @ 500 mls/ hr IV DAILY@1100 [facility] Rx#: [id number] Oral 1100 Output: Void Amount 700 Urine/Stool Mix 1300 Stool 200 Other: Urine Appearance Clear Urine Color Bright Yellow Urine Odor Normal Stool Color Green Stool Consistency Liquid # Bowel Movements 1 1 Exam: General: Alert, Awake, No acute Distress Eyes/N/T: EOMI, , Head/Neck: neck supple, CV: RRR, No murmurs, Pulm: Mild fine rales b/l, no wheezing Abd: soft, nontender, +BS x4 Ext: no clubbing/cyanosis/edema Neuro: Alert, no focal deficits, moves all extremities, Skin: warm/dry OBJ DATA Labs CBC & Chem 7: 03/21/21 05:31 03/22/21 04:57 Labs: Abnormal Lab Results 03/22/21 03/22/21 03/22/21 04:58 04:57 04:57 Hct MCHC RDW MPV Neut % (Auto) Lymph % (Auto) Lymph # (Auto) Seg Neutrophils % Lymphocytes % D-Dimer Sodium Chloride Carbon Dioxide Creatinine Glucose Hemoglobin A1c Osmolality Calcium Phosphorus Ferritin 1098.0 H Lactate Dehydrogenase C-Reactive Protein Total Protein Albumin Procalcitonin 0.22 H Cortisol AM Sample 1.5 L 03/22/21 03/21/21 03/21/21 04:57 05:31 05:31 Hct MCHC RDW MPV Neut % (Auto) Lymph % (Auto) Lymph # (Auto) Seg Neutrophils % Lymphocytes % D-Dimer Sodium 132 L Chloride Carbon Dioxide Creatinine 0.5 L Glucose 230 H Hemoglobin A1c Osmolality Calcium 8.3 L Phosphorus Ferritin Lactate Dehydrogenase 578 H C-Reactive Protein 5.00 H Total Protein 5.6 L Albumin 2.9 L Procalcitonin 0.28 H Cortisol AM Sample 3.1 L 03/21/21 03/21/21 03/21/21 05:31 05:31 05:30 Hct 40.0 L MCHC RDW MPV Neut % (Auto) Lymph % (Auto) Lymph # (Auto) Seg Neutrophils % 85 H Lymphocytes % 5 L D-Dimer Sodium 132 L Chloride Carbon Dioxide 19 L Creatinine 0.5 L Glucose 228 H Hemoglobin A1c Osmolality Calcium 8.4 L Phosphorus 2.4 L Ferritin 1217.0 H Lactate Dehydrogenase 534 H C-Reactive Protein 10.90 H Total Protein Albumin Procalcitonin Cortisol AM Sample 03/20/21 03/20/21 03/20/21 16:28 13:50 12:38 Hct MCHC RDW MPV Neut % (Auto) Lymph % (Auto) Lymph # (Auto) Seg Neutrophils % Lymphocytes % D-Dimer 1.32 H Sodium 126 L Chloride 93 L Carbon Dioxide 18 L Creatinine 0.5 L Glucose 247 H Hemoglobin A1c Osmolality 272 L Calcium 7.7 L Phosphorus Ferritin Lactate Dehydrogenase C-Reactive Protein Total Protein Albumin Procalcitonin Cortisol AM Sample 03/20/21 03/20/21 03/20/21 12:38 12:38 12:38 Hct MCHC 37.2 H RDW 11.2 L MPV 11.1 H Neut % (Auto) 85.5 H Lymph % (Auto) 8.3 L Lymph # (Auto) 0.47 L Seg Neutrophils % Lymphocytes % D-Dimer Sodium Chloride Carbon Dioxide Creatinine Glucose Hemoglobin A1c 10.9 H Osmolality Calcium Phosphorus Ferritin 1174.0 H Lactate Dehydrogenase C-Reactive Protein 12.90 H Total Protein Albumin Procalcitonin 0.27 H Cortisol AM Sample Meds: Medications Acetaminophen (Acetaminophen 325 Mg Tablet) 650 mg PO Q6HP PRN PRN Reason: PAIN/FEVER > 101 Albuterol/Ipratropium (Ipratropium/Albuterol 3 Ml Ampul.Neb) 3 ml NEB Q4HP PRN PRN Reason: Shortness Of Breath Dexamethasone (Dexamethasone 4 Mg Tablet) 6 mg PO DAILY [facility] Last Admin: 03/21/21 08:06 Dose: 6 mg Documented by: Dextrose (Dextrose 50% 50 Ml Vial) 0 ml IV UD PRN PRN Reason: Hypoglycemia Diagnostic Test (Pha) (Accu-Chek 1 Each Strip) 1 each FS ACHS [facility] Last Admin: 03/21/21 21:04 Dose: 1 each Documented by: Enoxaparin Sodium (Enoxaparin 40 Mg/0.4 Ml Syringe) 40 mg SQ BID [facility] Glucose (Dextrose 31 Gm Oral.Susp) 15 gm PO PRN PRN PRN Reason: Hypoglycemia Potassium Chloride 40 meq/ (Dextrose) 520 mls @ 130 mls/hr IV UD PRN PRN Reason: Potassium < 3 Magnesium Sulfate (Magnesium Sulfate) 2 gm in 50 mls @ 50 mls/hr IV UD PRN PRN Reason: Magnesium </= 1.6 REMDESIVIR 100 mg/ Sodium (Chloride) 250 mls @ 500 mls/hr IV DAILY@1100 [facility] Stop: 03/24/21 11:29 Last Infusion: 03/21/21 14:27 Dose: Infused Documented by: Ceftriaxone Sodium 2 gm/ (Dextrose) 50 mls @ 100 mls/hr IV DAILY [facility]; Protocol Last Infusion: 03/21/21 09:33 Dose: Infused Documented by: Insulin Glargine (Insulin Glargine, Human 1 Unit/0.01 Ml) 10 unit SQ DAILY [facility] Last Admin: 03/21/21 09:19 Dose: 10 unit Documented by: Insulin Human Lispro (Insulin Lispro 1 Unit/0.01 Ml Unit) 0 unit SQ ACHS [facility]; Protocol Last Admin: 03/21/21 21:05 Dose: 8 unit Documented by: Labetalol HCl (Labetalol 5 Mg/Ml Ml) 0 mg IV Q2HP PRN PRN Reason: Hypertension Metformin HCl (Metformin 500 Mg Tab.Xl.24h) 500 mg PO BIDCC [facility] Ondansetron HCl (Ondansetron 4 Mg/2 Ml Vial) 4 mg IV Q4HP PRN PRN Reason: Nausea And Vomiting Polyethylene Glycol (Polyethylene Glycol 3350 17 Gm Packet) 17 gm PO DAILYP PRN PRN Reason: Constipation Potassium Chloride (Potassium Chloride 20 Meq Tablet) 40 meq PO UD PRN PRN Reason: Potssium is 3-3.5 Last Admin: 03/20/21 21:20 Dose: 40 meq Documented by: Potassium Chloride (Potassium Chloride 20 Meq Tablet) 40 meq PO UD PRN PRN Reason: Potassium < 3 Senna (Sennosides 1 Tablet) 2 tab PO DAILYP PRN PRN Reason: Constipation Sodium Chloride (0.9 % Sodium Chloride 10 Ml Syringe) 10 ml IV Q8 [facility] Last Admin: 03/22/21 05:25 Dose: 10 ml Documented by: Zinc Sulfate (Zinc Sulfate 50 Mg Capsule) 50 mg PO DAILY [facility] Last Admin: 03/21/21 08:06 Dose: 50 mg Documented by: A/P Narrative A/P Narrative: A: *Covid pneumonia: -inflammatory markers improving *Acute hypoxic respiratory failure: -O2 needs increased to 8L [facility] *Hyponatremia: improved -tsh ok, low cortisol *Hyperglycemia & Diabetes (new diagnosis): No history of diabetes -A1c 10.9 -has not seen a pcp in 14-years *Hypertension: Undiagnosed -has not seen a pcp in 14-years *low cortisol P: -Rem/Dex -prone positioning, oob to chair -empiric abx given elevation in PCT -O2 supp, wean as able -IS/Acapella/RT, prn nebs -SSI, basal inuslin, start metformin, DM education, may need insulin therapy -monitor BP for possible need med at d/c -ACTH stim test -establish with PCP -ppx: lovenox Time Spent With Patient Time: Total time spent is greater than 50% in coordination of care (as documented) at patient's floor/unit and/or counseling patient:
[2021-03-22] MEDS: DEXAMETHASONE 4 MG TABLET PO SCH (08:31)
[2021-03-22] MEDS: INSULIN LISPRO 1 UNIT/0.01 ML UNIT SQ SCH ×4 (08:31→21:25)
[2021-03-22] MEDS: ZINC SULFATE 50 MG CAPSULE PO SCH (08:31)
[2021-03-22] MEDS: ENOXAPARIN 40 MG/0.4 ML SYRINGE SQ SCH ×2 (08:31→21:23)
[2021-03-22] MEDS: metFORMIN 500 MG TAB.XL.24H PO SCH ×2 (08:36→18:04)
[2021-03-22] MEDS ORDERED: INSULIN GLARGINE, HUMAN 1 UNIT/0.01 ML SQ SCH (09:00)
[2021-03-22] MEDS: cefTRIAXone 2 GM in DEXTROSE 5% IN WATER 50 ML IV SCH (10:47)
[2021-03-22] MEDS: REMDESIVIR 100 MG in 0.9 % SODIUM CHLORIDE 250 ML IV SCH (11:50)
[2021-03-22] MEDS ORDERED: INSULIN GLARGINE, HUMAN 1 UNIT/0.01 ML SQ ONE (18:59)
[2021-03-23] MEDS: 0.9 % SODIUM CHLORIDE 10 ML SYRINGE IV SCH ×3 (05:58→21:10)
[2021-03-23] MEDS ORDERED: COSYNTROPIN 0.25 MG VIAL IV ONE (06:02)
[2021-03-23 07:16] LABS: ALT/SGPT 24 U/L (<40); AST/SGOT 26 U/L (<40); Albumin 2.8 gm/dL (3.2-5.2); Alkaline Phosphatase 68 U/L (39-117); Bilirubin,Direct < 0.2 mg/dL (0-0.3); Bilirubin,Total 0.4 mg/dL (0.1-1.0); Blood Urea Nitrogen 15 mg/dL (6-20); Calcium 8.3 mg/dL (8.6-10.4); Carbon Dioxide 25 mmol/L (22-30); Chloride 100 mmol/L (96-108); Globulin 2.9 gm/dL (2.2-3.7); Glomerular Filtration Rate 120; Glucose 174 mg/dL (70-105); Lactate Dehydrogenase 638 U/L (135-225); Phosphorous 4.3 mg/dL (2.5-4.5); Triglycerides 75 mg/dL (<150); Uric Acid 4.8 mg/dL (2.5-8.0)
--- NOTE | 2021-03-23 08:07 | Internal Med Progress Note ---
SUBJECTIVE Subjective Patient information: Note initiated : 03/23/21 at 7:59 am Service Date, if different from initiated Date: [] Patient: Roland Lamas 45 y/o M admitted on 03/20/21 for short of breath. Chief Complaint: [] Interval history: History of present illness: Mr. Lamas is a 45 year old M Patient presents to ED with fever cough shortness of breath. He was diagnosed on March 13 with COVID-19 and has other family members tested positive as well. Several days later developed headache and in the past few days has the previously mentioned complaints. In the ED is on 4 L of oxygen with sats mid 90s. Labs also show hyponatremia and hyperglycemia. Patient denies history of diabetes. Also hypertensive and denies history of hypertension. The patient has not seen a PCP in 14 years. No leukocytosis but does have a mildly elevated procalcitonin. 03/21 states he feels about the same as yesterday. On 3.5 L nasal cannula but desats with exertion. Minimal cough. Newly diagnosed diabetes. 03/22 Patient appears comfortable and says he feels about the same. Has some coughing when he takes a deep breath but otherwise minimal cough. Shortness of breath about the same. He is on high flow nasal cannula at 8 to 9 L. 03/23 Oxygen supplementation was tried outpatients nose and throat feel like he was plugged up. Changed to Vapotherm with FiO2 of 60% a few minutes ago. Patient does admit to feeling more short of breath than yesterday. Has a mildly productive cough. Responded well to ACTH stimulation test. Review of Systems: denies headache/fever/chills/nausea/vomiting/chest or abdominal pain/diarrhea. Otherwise see above. Constitutional Vitals: Vital Signs Temp Pulse Resp BP Pulse Ox 97.1 F 88 12 143/82 85 L 03/23/21 04:01 03/23/21 06:50 03/23/21 06:50 03/23/21 06:00 03/23/21 06:50 Period Temp Pulse Resp BP Sys/Jurado Pulse Ox Last 24 Hr 97.1 F-97.7 F 56-108 10-29 93-160/71-93 79-98 Intake and Output 03/22/21 03/23/21 03/23/21 21:59 05:59 13:59 Intake Total 360 650 Output Total 1150 Balance -790 650 Weight 119.023 kg Intake & Output: Intake & Output 03/22/21 03/23/21 03/23/21 21:59 05:59 13:59 Intake Total 360 650 Output Total 1150 Balance -790 650 Weight 119.023 kg Intake: Oral 360 650 Output: Void Amount 1150 Other: Meal Dinner Percent of Meal Consumed 100% Urine Appearance Clear Clear Urine Color Dark Yellow Dark Yellow # Bowel Movements 0 Exam: General: Alert, Awake, No acute Distress Eyes/N/T: EOMI, , Head/Neck: neck supple, CV: RRR, No murmurs, Pulm: Mild fine rales b/l, occasional wheeze Abd: soft, nontender, +BS x4 Ext: no clubbing/cyanosis/edema Neuro: Alert, no focal deficits, moves all extremities, Skin: warm/dry OBJ DATA Labs CBC & Chem 7: 03/21/21 05:31 03/23/21 06:01 Labs: Abnormal Lab Results 03/23/21 03/23/21 03/22/21 06:01 06:00 04:58 Hct MCHC RDW MPV Neut % (Auto) Lymph % (Auto) Lymph # (Auto) Seg Neutrophils % Lymphocytes % D-Dimer Sodium Chloride Carbon Dioxide Creatinine 0.6 L Glucose 174 H Hemoglobin A1c Osmolality Calcium 8.3 L Phosphorus Ferritin Lactate Dehydrogenase 638 H C-Reactive Protein 5.30 H Total Protein 5.7 L Albumin 2.8 L Procalcitonin 0.22 H Cortisol AM Sample 3.8 L 03/22/21 03/22/21 03/22/21 04:57 04:57 04:57 Hct MCHC RDW MPV Neut % (Auto) Lymph % (Auto) Lymph # (Auto) Seg Neutrophils % Lymphocytes % D-Dimer Sodium 132 L Chloride Carbon Dioxide Creatinine 0.5 L Glucose 230 H Hemoglobin A1c Osmolality Calcium 8.3 L Phosphorus Ferritin 1098.0 H Lactate Dehydrogenase 578 H C-Reactive Protein 5.00 H Total Protein 5.6 L Albumin 2.9 L Procalcitonin Cortisol AM Sample 1.5 L 03/21/21 03/21/21 03/21/21 05:31 05:31 05:31 Hct 40.0 L MCHC RDW MPV Neut % (Auto) Lymph % (Auto) Lymph # (Auto) Seg Neutrophils % 85 H Lymphocytes % 5 L D-Dimer Sodium Chloride Carbon Dioxide Creatinine Glucose Hemoglobin A1c Osmolality Calcium Phosphorus Ferritin Lactate Dehydrogenase C-Reactive Protein Total Protein Albumin Procalcitonin 0.28 H Cortisol AM Sample 3.1 L 03/21/21 03/21/21 03/20/21 05:31 05:30 16:28 Hct MCHC RDW MPV Neut % (Auto) Lymph % (Auto) Lymph # (Auto) Seg Neutrophils % Lymphocytes % D-Dimer 1.32 H Sodium 132 L Chloride Carbon Dioxide 19 L Creatinine 0.5 L Glucose 228 H Hemoglobin A1c Osmolality Calcium 8.4 L Phosphorus 2.4 L Ferritin 1217.0 H Lactate Dehydrogenase 534 H C-Reactive Protein 10.90 H Total Protein Albumin Procalcitonin Cortisol AM Sample 03/20/21 03/20/21 03/20/21 13:50 12:38 12:38 Hct MCHC RDW MPV Neut % (Auto) Lymph % (Auto) Lymph # (Auto) Seg Neutrophils % Lymphocytes % D-Dimer Sodium 126 L Chloride 93 L Carbon Dioxide 18 L Creatinine 0.5 L Glucose 247 H Hemoglobin A1c 10.9 H Osmolality 272 L Calcium 7.7 L Phosphorus Ferritin 1174.0 H Lactate Dehydrogenase C-Reactive Protein 12.90 H Total Protein Albumin Procalcitonin Cortisol AM Sample 03/20/21 03/20/21 12:38 12:38 Hct MCHC 37.2 H RDW 11.2 L MPV 11.1 H Neut % (Auto) 85.5 H Lymph % (Auto) 8.3 L Lymph # (Auto) 0.47 L Seg Neutrophils % Lymphocytes % D-Dimer Sodium Chloride Carbon Dioxide Creatinine Glucose Hemoglobin A1c Osmolality Calcium Phosphorus Ferritin Lactate Dehydrogenase C-Reactive Protein Total Protein Albumin Procalcitonin 0.27 H Cortisol AM Sample Meds: Medications Acetaminophen (Acetaminophen 325 Mg Tablet) 650 mg PO Q6HP PRN PRN Reason: PAIN/FEVER > 101 Albuterol/Ipratropium (Ipratropium/Albuterol 3 Ml Ampul.Neb) 3 ml NEB Q4HP PRN PRN Reason: Shortness Of Breath Dexamethasone (Dexamethasone 4 Mg Tablet) 6 mg PO DAILY [facility] Last Admin: 03/22/21 08:31 Dose: 6 mg Documented by: Dextrose (Dextrose 50% 50 Ml Vial) 0 ml IV UD PRN PRN Reason: Hypoglycemia Diagnostic Test (Pha) (Accu-Chek 1 Each Strip) 1 each FS ACHS [facility] Last Admin: 03/23/21 07:12 Dose: 1 each Documented by: Enoxaparin Sodium (Enoxaparin 40 Mg/0.4 Ml Syringe) 40 mg SQ BID [facility] Last Admin: 03/22/21 21:23 Dose: 40 mg Documented by: Glucose (Dextrose 31 Gm Oral.Susp) 15 gm PO PRN PRN PRN Reason: Hypoglycemia Potassium Chloride 40 meq/ (Dextrose) 520 mls @ 130 mls/hr IV UD PRN PRN Reason: Potassium < 3 Magnesium Sulfate (Magnesium Sulfate) 2 gm in 50 mls @ 50 mls/hr IV UD PRN PRN Reason: Magnesium </= 1.6 REMDESIVIR 100 mg/ Sodium (Chloride) 250 mls @ 500 mls/hr IV DAILY@1100 [facility] Stop: 03/24/21 11:29 Last Infusion: 03/22/21 12:20 Dose: Infused Documented by: Ceftriaxone Sodium 2 gm/ (Dextrose) 50 mls @ 100 mls/hr IV DAILY [facility]; Protocol Last Infusion: 03/22/21 11:17 Dose: Infused Documented by: Insulin Glargine (Insulin Glargine, Human 1 Unit/0.01 Ml) 22 unit SQ DAILY [facility] Last Admin: 03/22/21 08:32 Dose: 22 units Documented by: Insulin Human Lispro (Insulin Lispro 1 Unit/0.01 Ml Unit) 0 unit SQ [facility]; Protocol Last Admin: 03/22/21 21:25 Dose: 8 unit Documented by: Labetalol HCl (Labetalol 5 Mg/Ml Ml) 0 mg IV Q2HP PRN PRN Reason: Hypertension Metformin HCl (Metformin 500 Mg Tab.Xl.24h) [facility] Last Admin: 03/22/21 18:04 Dose: 500 mg Documented by: Ondansetron HCl (Ondansetron 4 Mg/2 Ml Vial) 4 mg IV Q4HP PRN PRN Reason: Nausea And Vomiting Polyethylene Glycol (Polyethylene Glycol 3350 17 Gm Packet) 17 gm PO DAILYP PRN PRN Reason: Constipation Potassium Chloride (Potassium Chloride 20 Meq Tablet) 40 meq PO UD PRN PRN Reason: Potssium is 3-3.5 Last Admin: 03/20/21 21:20 Dose: 40 meq Documented by: Potassium Chloride (Potassium Chloride 20 Meq Tablet) 40 meq PO UD PRN PRN Reason: Potassium < 3 Senna (Sennosides 1 Tablet) 2 tab PO DAILYP PRN PRN Reason: Constipation Sodium Chloride (0.9 % Sodium Chloride 10 Ml Syringe) 10 ml IV Q8 [facility] Last Admin: 03/23/21 05:58 Dose: 10 ml Documented by: Zinc Sulfate (Zinc Sulfate 50 Mg Capsule) 50 mg PO DAILY [facility] Last Admin: 03/22/21 08:31 Dose: 50 mg Documented by: A/P Narrative A/P Narrative: A: *Covid pneumonia w/ARDS: -requiring increasing O2 needs *Acute hypoxic respiratory failure: -on vapotherm at 60%fio2 35L *Hyponatremia: improved -tsh ok, low cortisol *Hyperglycemia & Diabetes (new diagnosis): No history of diabetes -A1c 10.9 -has not seen a pcp in 14-years *?Hypertension: has not seen a pcp in 14-years *low AM cortisol but good response to ACTH stim test P: -Rem/Dex -prone positioning, oob to chair -empiric abx given mild elevation in PCT likely d/c soon -O2 supp, wean as able -IS/Acapella/RT, prn nebs -SSI, basal inuslin, started metformin, DM education, may need insulin therapy -establish with PCP -ppx: lovenox Time Spent With Patient Time: Total time spent is greater than 50% in coordination of care (as documented) at patient's floor/unit and/or counseling patient:
[2021-03-23] MEDS: INSULIN LISPRO 1 UNIT/0.01 ML UNIT SQ SCH ×4 (08:32→21:08)
[2021-03-23] MEDS: DEXAMETHASONE 4 MG TABLET PO SCH (08:32)
[2021-03-23] MEDS: ZINC SULFATE 50 MG CAPSULE PO SCH (08:32)
[2021-03-23] MEDS: metFORMIN 500 MG TAB.XL.24H PO SCH ×2 (08:32→17:51)
[2021-03-23] MEDS: ENOXAPARIN 40 MG/0.4 ML SYRINGE SQ SCH ×2 (08:35→21:08)
[2021-03-23] MEDS: cefTRIAXone 2 GM in DEXTROSE 5% IN WATER 50 ML IV SCH (08:35)
[2021-03-23] MEDS ORDERED: ALBUMIN HUMAN 12.5 GM/50 ML BAG IV ONE (08:38)
[2021-03-23] MEDS ORDERED: FUROSEMIDE 40 MG/4 ML VIAL IV ONE (08:38)
[2021-03-23] MEDS ORDERED: INSULIN GLARGINE, HUMAN 1 UNIT/0.01 ML SQ SCH (09:00)
[2021-03-23] MEDS: REMDESIVIR 100 MG in 0.9 % SODIUM CHLORIDE 250 ML IV SCH (10:57)
[2021-03-23] MEDS: IPRATROPIUM/ALBUTEROL SULFATE 1 PUFF INHALER INH PRN ×2 (17:22→23:09)
[2021-03-24] MEDS: LORazepam 2 MG/ML VIAL IV PRN (01:03)
[2021-03-24] MEDS ORDERED: LORazepam 2 MG/ML VIAL ONE (01:05)
[2021-03-24] MEDS: LABETALOL 5 MG/ML ML IV PRN ×2 (02:41→06:50)
[2021-03-24] MEDS: 0.9 % SODIUM CHLORIDE 10 ML SYRINGE IV SCH ×4 (06:41→22:26)
[2021-03-24 07:10] LABS: Basophils # (Auto) 0.01 K/mcL (0.00-0.20); Basophils % (Auto) 0.2 % (0.0-2.0); Eosinophils # (Auto) 0 K/mcL (0.00-0.70); Eosinophils % (Auto) 0 % (0.0-7.0); Hematocrit 39.2 % (41.0-55.0); Lymphocytes # (Auto) 0.53 K/mcL (1.50-4.80); Mean Cell Volume 87.9 fL (80.0-100.0); Mean Corpuscular HGB Conc 35.7 g/dL (31.0-36.0); Mean Platelet Volume 10.2 fL (7.4-10.4); Monocytes # (Auto) 0.15 K/mcL (0.10-0.90); Monocytes % (Auto) 3.5 % (1.0-12.0); Neutrophils % (Auto) 83.9 % (38.0-78.0); Platelet Count 218 K/mcL (140-440); RBC 4.46 M/mcL (4.50-5.90); Red Cell Distribution Width 11.3 % (11.5-14.5); WBC 4.3 K/mcL (4.5-11.0)
[2021-03-24 07:27] LABS: Blood Urea Nitrogen 13 mg/dL (6-20); Calcium 8.3 mg/dL (8.6-10.4); Carbon Dioxide 26 mmol/L (22-30); Chloride 98 mmol/L (96-108); Glomerular Filtration Rate 120; Glucose 161 mg/dL (70-105)
--- NOTE | 2021-03-24 07:29 | Internal Med Progress Note ---
SUBJECTIVE Subjective Patient information: Note initiated : 03/24/21 at 7:26 am Service Date, if different from initiated Date: [] Patient: Roland Lamas 45 y/o M admitted on 03/20/21 for short of breath. Chief Complaint: [] Interval history: History of present illness: Mr. Lamas is a 45 year old M Patient presents to ED with fever cough shortness of breath. He was diagnosed on March 13 with COVID-19 and has other family members tested positive as well. Several days later developed headache and in the past few days has the previously mentioned complaints. In the ED is on 4 L of oxygen with sats mid 90s. Labs also show hyponatremia and hyperglycemia. Patient denies history of diabetes. Also hypertensive and denies history of hypertension. The patient has not seen a PCP in 14 years. No leukocytosis but does have a mildly elevated procalcitonin. 03/21 states he feels about the same as yesterday. On 3.5 L nasal cannula but desats with exertion. Minimal cough. Newly diagnosed diabetes. 03/22 Patient appears comfortable and says he feels about the same. Has some coughing when he takes a deep breath but otherwise minimal cough. Shortness of breath about the same. He is on high flow nasal cannula at 8 to 9 L. 03/23 Oxygen supplementation was tried outpatients nose and throat feel like he was plugged up. Changed to Vapotherm with FiO2 of 60% a few minutes ago. Patient does admit to feeling more short of breath than yesterday. Has a mildly productive cough. Responded well to ACTH stimulation test. 03/24 Patient on BiPAP was on 6% but weaned down to 40 although did bump up to 50% again. Patient states overall he feels like he can breathe a little better than yesterday. Still has cough. Review of Systems: denies headache/fever/chills/nausea/vomiting/chest or abdominal pain/diarrhea. Otherwise see above. Constitutional Vitals: Vital Signs Temp Pulse Resp BP Pulse Ox 97.3 F 98 H 17 165/84 92 03/24/21 04:01 03/24/21 06:33 03/24/21 06:33 03/24/21 06:33 03/24/21 06:33 Period Temp Pulse Resp BP Sys/Jurado Pulse Ox Last 24 Hr 97.1 F-97.6 F 70-98 12-32 132-181/70-107 86-98 Intake and Output 03/23/21 03/24/21 03/24/21 21:59 05:59 13:59 Intake Total 350 Output Total 750 600 Balance -750 -250 Weight 117.889 kg Intake & Output: Intake & Output 03/23/21 03/24/21 03/24/21 21:59 05:59 13:59 Intake Total 350 Output Total 750 600 Balance -750 -250 Weight 117.889 kg Intake: Oral 350 Output: Void Amount 750 600 Other: Meal Dinner Percent of Meal Consumed 100% Feeding Ability Independent Urine Appearance Clear Clear Urine Color Pale Dark Yellow Exam: General: Alert, Awake, No acute Distress Eyes/N/T: EOMI, , Head/Neck: neck supple, CV: RRR, No murmurs, Pulm: Mild fine rales b/l, occasional wheeze Abd: soft, nontender, +BS x4 Ext: no clubbing/cyanosis/edema Neuro: Alert, no focal deficits, moves all extremities, Skin: warm/dry OBJ DATA Labs CBC & Chem 7: 03/24/21 05:24 03/24/21 05:24 Labs: Abnormal Lab Results 03/24/21 03/23/21 03/23/21 05:24 06:01 06:00 WBC 4.3 L RBC 4.46 L Hct 39.2 L RDW 11.3 L Neut % (Auto) 83.9 H Lymph % (Auto) 12.4 L Lymph # (Auto) 0.53 L Seg Neutrophils % Lymphocytes % Sodium Carbon Dioxide Creatinine 0.6 L Glucose 174 H Calcium 8.3 L Phosphorus Ferritin Lactate Dehydrogenase 638 H C-Reactive Protein 5.30 H Total Protein 5.7 L Albumin 2.8 L Procalcitonin Cortisol AM Sample 3.8 L 03/22/21 03/22/21 03/22/21 04:58 04:57 04:57 WBC RBC Hct RDW Neut % (Auto) Lymph % (Auto) Lymph # (Auto) Seg Neutrophils % Lymphocytes % Sodium Carbon Dioxide Creatinine Glucose Calcium Phosphorus Ferritin 1098.0 H Lactate Dehydrogenase C-Reactive Protein Total Protein Albumin Procalcitonin 0.22 H Cortisol AM Sample 1.5 L 08/05/21 08/04/21 08/04/21 04:57 05:31 05:31 WBC RBC Hct RDW Neut % (Auto) Lymph % (Auto) Lymph # (Auto) Seg Neutrophils % Lymphocytes % Sodium 132 L Carbon Dioxide Creatinine 0.5 L Glucose 230 H Calcium 8.3 L Phosphorus Ferritin Lactate Dehydrogenase 578 H C-Reactive Protein 5.00 H Total Protein 5.6 L Albumin 2.9 L Procalcitonin 0.28 H Cortisol AM Sample 3.1 L 03/21/21 03/21/21 03/21/21 05:31 05:31 05:30 WBC RBC Hct RDW Neut % (Auto) Lymph % (Auto) Lymph # (Auto) Seg Neutrophils % 85 H Lymphocytes % 5 L Sodium 132 L Carbon Dioxide 19 L Creatinine 0.5 L Glucose 228 H Calcium 8.4 L Phosphorus 2.4 L Ferritin 1217.0 H Lactate Dehydrogenase 534 H C-Reactive Protein 10.90 H Total Protein Albumin Procalcitonin Cortisol AM Sample Meds: Medications Acetaminophen (Acetaminophen 325 Mg Tablet) 650 mg PO Q6HP PRN PRN Reason: PAIN/FEVER > 101 Albuterol/Ipratropium (Ipratropium/Albuterol 3 Ml Ampul.Neb) 3 ml NEB Q4HP PRN PRN Reason: Shortness Of Breath Albuterol/Ipratropium (Ipratropium/Albuterol Sulfate 1 Puff Inhaler) 2 puff INH QID PRN PRN Reason: dyspnea Last Admin: 03/23/21 23:09 Dose: 2 puff Documented by: Dexamethasone (Dexamethasone 4 Mg Tablet) 6 mg PO DAILY [facility] Last Admin: 03/23/21 08:32 Dose: 6 mg Documented by: Dextrose (Dextrose 50% 50 Ml Vial) 0 ml IV UD PRN PRN Reason: Hypoglycemia Diagnostic Test (Pha) (Accu-Chek 1 Each Strip) 1 each FS ACHS [facility] Last Admin: 03/23/21 21:07 Dose: 1 each Documented by: Enoxaparin Sodium (Enoxaparin 40 Mg/0.4 Ml Syringe) 40 mg SQ BID [facility] Last Admin: 03/23/21 21:08 Dose: 40 mg Documented by: Glucose (Dextrose 31 Gm Oral.Susp) 15 gm PO PRN PRN PRN Reason: Hypoglycemia Potassium Chloride 40 meq/ (Dextrose) 520 mls @ 130 mls/hr IV UD PRN PRN Reason: Potassium < 3 Magnesium Sulfate (Magnesium Sulfate) 2 gm in 50 mls @ 50 mls/hr IV UD PRN PRN Reason: Magnesium </= 1.6 REMDESIVIR 100 mg/ Sodium (Chloride) 250 mls @ 500 mls/hr IV DAILY@1100 [facility] Stop: 03/24/21 11:29 Last Infusion: 03/23/21 11:30 Dose: Infused Documented by: Ceftriaxone Sodium 2 gm/ (Dextrose) 50 mls @ 100 mls/hr IV DAILY [facility]; Protocol Last Infusion: 03/23/21 09:05 Dose: Infused Documented by: Insulin Glargine (Insulin Glargine, Human 1 Unit/0.01 Ml) 32 unit SQ DAILY [facility] Last Admin: 03/23/21 08:33 Dose: 32 units Documented by: Insulin Human Lispro (Insulin Lispro 1 Unit/0.01 Ml Unit) 0 unit SQ ACHS [facility]; Protocol Last Admin: 03/23/21 21:08 Dose: 8 unit Documented by: Labetalol HCl (Labetalol 5 Mg/Ml Ml) 0 mg IV Q2HP PRN PRN Reason: Hypertension Last Admin: 03/24/21 06:50 Dose: 10 mg Documented by: Lorazepam (Lorazepam 2 Mg/Ml Vial) 0.5 mg IV Q4HP PRN PRN Reason: ANXIETY/SEDATION Last Admin: 03/24/21 01:03 Dose: 0.5 mg Documented by: Metformin HCl ([facility] 500 [facility]l.24h) [facility] Last Admin: 03/23/21 17:51 Dose: 500 mg Documented by: Ondansetron HCl (Ondansetron 4 Mg/2 Ml Vial) 4 mg IV Q4HP PRN PRN Reason: Nausea And Vomiting Polyethylene Glycol (Polyethylene Glycol 3350 17 Gm Packet) 17 gm PO DAILYP PRN PRN Reason: Constipation Potassium Chloride (Potassium Chloride 20 Meq Tablet) 40 meq PO UD PRN PRN Reason: Potssium is 3-3.5 Last Admin: 03/20/21 21:20 Dose: 40 meq Documented by: Potassium Chloride (Potassium Chloride 20 Meq Tablet) 40 meq PO UD PRN PRN Reason: Potassium < 3 Senna (Sennosides 1 Tablet) 2 tab PO DAILYP PRN PRN Reason: Constipation Sodium Chloride (0.9 % Sodium Chloride 10 Ml Syringe) 10 ml IV Q8 [facility] Last Admin: 03/24/21 06:41 Dose: 10 ml Documented by: Zinc Sulfate (Zinc Sulfate 50 Mg Capsule) 50 mg PO DAILY [facility] Last Admin: 03/23/21 08:32 Dose: 50 mg Documented by: A/P Narrative A/P Narrative: A: *Covid pneumonia w/ARDS: -requiring increasing O2 needs *Acute hypoxic respiratory failure: -on bipap @50% fio2 *Hyponatremia: improved -tsh ok, low cortisol but good response to stim test *Hyperglycemia & Diabetes (new diagnosis): No history of diabetes -A1c 10.9 -has not seen a pcp in 14-years *?Hypertension: has not seen a pcp in 14-years *low AM cortisol but good response to ACTH stim test *obesity: P: -Rem/Dex -prone positioning, oob to chair -empiric abx given mild elevation in PCT likely d/c soon -O2 supp bipa, wean as able -IS/Acapella/RT, prn nebs -SSI, basal inuslin(titrate), started metformin, DM education, may need insulin therapy -establish with PCP -ppx: lovenox bid for covid Time Spent With Patient Time: Total time spent is greater than 50% in coordination of care (as documented) at patient's floor/unit and/or counseling patient:
[2021-03-24 07:59] LABS: Lymphocytes % (Auto) 12.4 % (15.0-49.0)
[2021-03-24] MEDS: cefTRIAXone 2 GM in DEXTROSE 5% IN WATER 50 ML IV SCH (08:13)
[2021-03-24] MEDS: DEXAMETHASONE 4 MG TABLET PO SCH (08:14)
[2021-03-24] MEDS: metFORMIN 500 MG TAB.XL.24H PO SCH ×2 (08:14→17:59)
[2021-03-24] MEDS: ENOXAPARIN 40 MG/0.4 ML SYRINGE SQ SCH ×2 (08:14→22:25)
[2021-03-24] MEDS: INSULIN GLARGINE, HUMAN 1 UNIT/0.01 ML SQ SCH (08:15)
[2021-03-24] MEDS: POTASSIUM CHLORIDE 20 MEQ TABLET PO PRN (08:15)
[2021-03-24] MEDS: INSULIN LISPRO 1 UNIT/0.01 ML UNIT SQ SCH ×4 (08:16→22:25)
[2021-03-24] MEDS: ZINC SULFATE 50 MG CAPSULE PO SCH (08:16)
[2021-03-24] MEDS: REMDESIVIR 100 MG in 0.9 % SODIUM CHLORIDE 250 ML IV SCH (10:38)
[2021-03-24] MEDS: cloNIDine HCL 0.1 MG TABLET PO PRN (10:38)
[2021-03-24] MEDS: hydrALAZINE 20 MG/ML VIAL IV PRN (11:40)
[2021-03-24] MEDS: amLODIPine 5 MG TABLET PO SCH (15:19)
[2021-03-25] MEDS: cloNIDine HCL 0.1 MG TABLET PO PRN (02:01)
[2021-03-25 06:47] LABS: Basophils # (Auto) 0.01 K/mcL (0.00-0.20); Basophils % (Auto) 0.4 % (0.0-2.0); Eosinophils # (Auto) 0 K/mcL (0.00-0.70); Eosinophils % (Auto) 0 % (0.0-7.0); Hematocrit 39.3 % (41.0-55.0); Lymphocytes # (Auto) 0.35 K/mcL (1.50-4.80); Mean Cell Volume 88.5 fL (80.0-100.0); Mean Corpuscular HGB Conc 35.6 g/dL (31.0-36.0); Mean Platelet Volume 9.8 fL (7.4-10.4); Monocytes # (Auto) 0.09 K/mcL (0.10-0.90); Monocytes % (Auto) 3.7 % (1.0-12.0); Neutrophils % (Auto) 81.7 % (38.0-78.0); Platelet Count 211 K/mcL (140-440); RBC 4.44 M/mcL (4.50-5.90); Red Cell Distribution Width 11.3 % (11.5-14.5); WBC 2.5 K/mcL (4.5-11.0)
[2021-03-25] MEDS: 0.9 % SODIUM CHLORIDE 10 ML SYRINGE IV SCH ×4 (06:51→21:50)
[2021-03-25 07:13] LABS: Blood Urea Nitrogen 13 mg/dL (6-20); Calcium 8.2 mg/dL (8.6-10.4); Carbon Dioxide 25 mmol/L (22-30); Chloride 99 mmol/L (96-108); Glomerular Filtration Rate 129; Glucose 140 mg/dL (70-105)
[2021-03-25] MEDS: INSULIN LISPRO 1 UNIT/0.01 ML UNIT SQ SCH ×4 (09:13→21:48)
[2021-03-25] MEDS: metFORMIN 500 MG TAB.XL.24H PO SCH ×2 (09:13→17:34)
[2021-03-25] MEDS: ZINC SULFATE 50 MG CAPSULE PO SCH (09:13)
[2021-03-25] MEDS: DEXAMETHASONE 4 MG TABLET PO SCH (09:13)
[2021-03-25] MEDS: INSULIN GLARGINE, HUMAN 1 UNIT/0.01 ML SQ SCH (09:13)
[2021-03-25] MEDS: amLODIPine 5 MG TABLET PO SCH (09:13)
[2021-03-25] MEDS: ENOXAPARIN 40 MG/0.4 ML SYRINGE SQ SCH ×2 (09:15→21:48)
[2021-03-25] MEDS: cefTRIAXone 2 GM in DEXTROSE 5% IN WATER 50 ML IV SCH (09:16)
[2021-03-25] MEDS ORDERED: METOPROLOL TARTRATE 25 MG TABLET PO ONE (09:40)
--- NOTE | 2021-03-25 09:41 | Internal Med Progress Note ---
SUBJECTIVE Subjective Patient information: Note initiated : 03/25/21 at 9:37 am Service Date, if different from initiated Date: [] Patient: Roland Lamas 45 y/o M admitted on 03/20/21 for short of breath. Chief Complaint: [] Interval history: History of present illness: Mr. Lamas is a 45 year old M Patient presents to ED with fever cough shortness of breath. He was diagnosed on March 13 with COVID-19 and has other family members tested positive as well. Several days later developed headache and in the past few days has the previously mentioned complaints. In the ED is on 4 L of oxygen with sats mid 90s. Labs also show hyponatremia and hyperglycemia. Patient denies history of diabetes. Also hypertensive and denies history of hypertension. The patient has not seen a PCP in 14 years. No leukocytosis but does have a mildly elevated procalcitonin. 03/21 states he feels about the same as yesterday. On 3.5 L nasal cannula but desats with exertion. Minimal cough. Newly diagnosed diabetes. 03/22 Patient appears comfortable and says he feels about the same. Has some coughing when he takes a deep breath but otherwise minimal cough. Shortness of breath about the same. He is on high flow nasal cannula at 8 to 9 L. 03/23 Oxygen supplementation was tried outpatients nose and throat feel like he was plugged up. Changed to Vapotherm with FiO2 of 60% a few minutes ago. Patient does admit to feeling more short of breath than yesterday. Has a mildly productive cough. Responded well to ACTH stimulation test. 03/24 Patient on BiPAP was on 6% but weaned down to 40 although did bump up to 50% again. Patient states overall he feels like he can breathe a little better than yesterday. Still has cough. 03/25 Patient was on BiPAP at 50% last night and did become short of breath through the night but once she was placed in prone position he felt much better. This morning he is comfortable and was doing well on 50% BiPAP. Temporarily changed to Vapotherm for breakfast. Occasional productive cough. Review of Systems: denies headache/fever/chills/nausea/vomiting/chest or abdominal pain/diarrhea. Otherwise see above. Constitutional Vitals: Vital Signs Temp Pulse Resp BP Pulse Ox 97.4 F 103 H 15 135/92 86 L 03/25/21 04:01 03/25/21 08:22 03/25/21 08:22 03/25/21 08:01 03/25/21 08:22 Period Temp Pulse Resp BP Sys/Jurado Pulse Ox Last 24 Hr 97.2 F-98.0 F 68-112 13-32 135-160/80-97 50-97 Intake and Output 03/24/21 03/25/21 03/25/21 21:59 05:59 13:59 Intake Total 550 900 Output Total 950 850 Balance -400 50 Weight 118.115 kg Intake & Output: Intake & Output 03/24/21 03/25/21 03/25/21 21:59 05:59 13:59 Intake Total 550 900 Output Total 950 850 Balance -400 50 Weight 118.115 kg Intake: Oral 550 900 Output: Void Amount 950 Urine/Stool Mix 850 Other: Stool Size Large Stool Color Brown Stool Consistency Loose Exam: General: Alert, Awake, No acute Distress Eyes/N/T: EOMI, , Head/Neck: neck supple, CV: RRR, No murmurs, Pulm: Mild fine rales b/l, no wheezing today Abd: soft, nontender, +BS x4 Ext: no clubbing/cyanosis/edema Neuro: Alert, no focal deficits, moves all extremities, Skin: warm/dry OBJ DATA Labs CBC & Chem 7: 03/25/21 05:39 03/25/21 05:39 Labs: Abnormal Lab Results 03/25/21 03/25/21 03/25/21 05:40 05:39 05:39 WBC 2.5 L RBC 4.44 L Hct 39.3 L RDW 11.3 L Neut % (Auto) 81.7 H Lymph % (Auto) 14.2 L Lymph # (Auto) 0.35 L [place] # (Auto) 0.09 L Potassium Creatinine 0.5 L Glucose 140 H Calcium 8.2 L Ferritin 962.5 H Lactate Dehydrogenase C-Reactive Protein 11.80 H Total Protein Albumin Cortisol AM Sample 03/24/21 03/24/21 03/24/21 05:44 05:24 05:24 WBC 4.3 L RBC 4.46 L Hct 39.2 L RDW 11.3 L Neut % (Auto) 83.9 H Lymph % (Auto) 12.4 L Lymph # (Auto) 0.53 L [place] # (Auto) Potassium 3.2 L Creatinine 0.6 L Glucose 161 H Calcium 8.3 L Ferritin 1066.0 H Lactate Dehydrogenase C-Reactive Protein 6.50 H Total Protein Albumin Cortisol AM Sample 03/23/21 03/23/21 06:01 06:00 WBC RBC Hct RDW Neut % (Auto) Lymph % (Auto) Lymph # (Auto) [place] # (Auto) Potassium Creatinine 0.6 L Glucose 174 H Calcium 8.3 L Ferritin Lactate Dehydrogenase 638 H C-Reactive Protein 5.30 H Total Protein 5.7 L Albumin 2.8 L Cortisol AM Sample 3.8 L Meds: Medications Acetaminophen (Acetaminophen 325 Mg Tablet) 650 mg PO Q6HP PRN PRN Reason: PAIN/FEVER > 101 Albuterol/Ipratropium (Ipratropium/Albuterol 3 Ml Ampul.Neb) 3 ml NEB Q4HP PRN PRN Reason: Shortness Of Breath Albuterol/Ipratropium (Ipratropium/Albuterol Sulfate 1 Puff Inhaler) 2 puff INH QID PRN PRN Reason: dyspnea Last Admin: 03/23/21 23:09 Dose: 2 puff Documented by: Amlodipine Besylate (Amlodipine 5 Mg Tablet) 5 mg PO DAILY [facility] Last Admin: 03/25/21 09:13 Dose: 5 mg Documented by: Clonidine HCl (Clonidine Hcl 0.1 Mg Tablet) 0.1 mg PO Q4HP PRN PRN Reason: Hypertension sbp>150 Last Admin: 03/25/21 02:01 Dose: 0.1 mg Documented by: Dexamethasone (Dexamethasone 4 Mg Tablet) 6 mg PO DAILY [facility] Last Admin: 03/25/21 09:13 Dose: 6 mg Documented by: Dextrose (Dextrose 50% 50 Ml Vial) 0 ml IV UD PRN PRN Reason: Hypoglycemia Diagnostic Test (Pha) (Accu-Chek 1 Each Strip) 1 each FS ACHS [facility] Last Admin: 03/25/21 07:17 Dose: 1 each Documented by: Enoxaparin Sodium (Enoxaparin 40 Mg/0.4 Ml Syringe) 40 mg SQ BID [facility] Last Admin: 03/25/21 09:15 Dose: 40 mg Documented by: Glucose (Dextrose 31 Gm Oral.Susp) 15 gm PO PRN PRN PRN Reason: Hypoglycemia Hydralazine HCl (Hydralazine 20 Mg/Ml Vial) 0 mg IV Q2HP PRN PRN Reason: Hypertension Last Admin: 03/24/21 11:40 Dose: 10 mg Documented by: Potassium Chloride 40 meq/ (Dextrose) 520 mls @ 130 mls/hr IV UD PRN PRN Reason: Potassium < 3 Magnesium Sulfate (Magnesium Sulfate) 2 gm in 50 mls @ 50 mls/hr IV UD PRN PRN Reason: Magnesium </= 1.6 Ceftriaxone Sodium 2 gm/ (Dextrose) 50 mls @ 100 mls/hr IV DAILY [facility]; Protocol Last Admin: 03/25/21 09:16 Dose: 100 mls/hr Documented by: Insulin Glargine (Insulin Glargine, Human 1 Unit/0.01 Ml) 42 unit SQ DAILY [facility] Last Admin: 03/25/21 09:13 Dose: 42 units Documented by: Insulin Human Lispro (Insulin Lispro 1 Unit/0.01 Ml Unit) 0 unit SQ ACHS [facility]; Protocol Last Admin: 03/25/21 09:13 Dose: 2 unit Documented by: Labetalol HCl (Labetalol 5 Mg/Ml Ml) 0 mg IV Q2HP PRN PRN Reason: Hypertension Last Admin: 03/24/21 06:50 Dose: 10 mg Documented by: Lorazepam (Lorazepam 2 Mg/Ml Vial) 0.5 mg IV Q4HP PRN PRN Reason: ANXIETY/SEDATION Last Admin: 03/24/21 01:03 Dose: 0.5 mg Documented by: Metformin HCl (Metformin 500 Mg Tab.Xl.24h) 500 mg PO BIDCC [facility] Last Admin: 03/25/21 09:13 Dose: 500 mg Documented by: Ondansetron HCl (Ondansetron 4 Mg/2 Ml Vial) 4 mg IV Q4HP PRN PRN Reason: Nausea And Vomiting Polyethylene Glycol (Polyethylene Glycol 3350 17 Gm Packet) 17 gm PO DAILYP PRN PRN Reason: Constipation Potassium Chloride (Potassium Chloride 20 Meq Tablet) 40 meq PO UD PRN PRN Reason: Potssium is 3-3.5 Last Admin: 03/24/21 08:15 Dose: 40 meq Documented by: Potassium Chloride (Potassium Chloride 20 Meq Tablet) 40 meq PO UD PRN PRN Reason: Potassium < 3 Senna (Sennosides 1 Tablet) 2 tab PO DAILYP PRN PRN Reason: Constipation Sodium Chloride (0.9 % Sodium Chloride 10 Ml Syringe) 10 ml IV Q8 [facility] Last Admin: 03/25/21 06:51 Dose: 10 ml Documented by: Zinc Sulfate (Zinc Sulfate 50 Mg Capsule) 50 mg PO DAILY [facility] Last Admin: 03/25/21 09:13 Dose: 50 mg Documented by: A/P Jluis A/P Narrative: A: *Covid pneumonia w/ARDS: - *Acute hypoxic respiratory failure: -on bipap @50% fio2 still *Hyponatremia: improved -tsh ok, low cortisol but good response to stim test *Leukocypenia: 2/2 above *Hyperglycemia & Diabetes (new diagnosis): No history of diabetes -A1c 10.9 -has not seen a pcp in 14-years *Hypertension: has not seen a pcp in 14-years *low AM cortisol but good response to ACTH stim test *obesity: P: -Rem(finished)/Dex(continue) -prone positioning, oob to chair -empiric abx given mild pct elevation now decreased, cx's neg and afebrile/no bandemia will d/c abx -O2 supp bipa, wean as able -IS/Acapella/RT, prn nebs -SSI, basal inuslin(titrate), started metformin, DM education, -norvasc started -establish with PCP -ppx: lovenox bid for covid Time Spent With Patient Time: Total time spent is greater than 50% in coordination of care (as documented) at patient's floor/unit and/or counseling patient:
[2021-03-25 09:55] LABS: Lymphocytes % (Auto) 14.2 % (15.0-49.0)
[2021-03-25] MEDS: IPRATROPIUM/ALBUTEROL SULFATE 1 PUFF INHALER INH PRN ×2 (10:20→17:31)
[2021-03-25] MEDS ORDERED: METOPROLOL TARTRATE 25 MG TABLET ONE (10:27)
[2021-03-25 14:46] LABS: ABG Base Excess 3 (-2-3); ABG Methemoglobin 0.3 % (0.4-1.5); ABG Oxygen Saturation 93.3 % (94.0-97.0); ABG PCO2 33.7 mmHg (35.0-45.0); ABG PH 7.51 U (7.35-7.45); ABG PO2 63.9 mmHg (80.0-100.0)
[2021-03-25] MEDS: REMDESIVIR 100 MG in 0.9 % SODIUM CHLORIDE 250 ML IV SCH (14:52)
--- NOTE | 2021-03-25 15:04 | Cat Scan Report ---
INDICATION: covid pneumonia COMPARISON: Previous chest x-ray dated 03/20/2021 TECHNIQUE: Axial noncontrast enhanced images through the chest. Sagittally and coronally reformatted images. MIP reformatted images. FINDINGS: Lungs:Lungs are diffusely abnormal. There is extensive groundglass infiltrate with bilateral lower lobe predominance. There is crazy paving (groundglass infiltrate and reticular abnormality. There are also areas of consolidation. Distribution is predominantly peripheral. This appearance is consistent with covid pneumonia Mediastinum, vascular:There is pneumomediastinum. This extends to the base of the neck and extends caudally to the level of the diaphragm. There is no associated pneumothorax There is no mediastinal mass. No pathologic adenopathy. Heart:No significant cardiomegaly. No pericardial effusion Pleura:No pleural effusion. No pleural-based mass. No pleural calcification Axilla, supraclavicular regions, chest wall:No axillary or supraclavicular adenopathy. Musculoskeletal:No thoracic compression fractures. No lytic lesions. No sternal or rib lesions Upper Abdomen:Negative to the limits of noncontrast enhanced examination IMPRESSION: 1. Extensive lung disease with groundglass infiltrates, crazy paving, and consolidation 2. Appearance is consistent with severe covid pneumonia 3. Pneumomediastinum The exam was performed using radiation dose optimization techniques including, but not limited to, automated exposure control, adjustment of the mA and/or kV according to patient size and use of iterative reconstruction technique. Interpreted and Authenticated by: Roland Winters 03/25/21
[2021-03-26] MEDS: 0.9 % SODIUM CHLORIDE 10 ML SYRINGE IV SCH ×2 (05:57→13:06)
[2021-03-26 07:05] LABS: Basophils # (Auto) 0.01 K/mcL (0.00-0.20); Basophils % (Auto) 0.3 % (0.0-2.0); Eosinophils # (Auto) 0.01 K/mcL (0.00-0.70); Eosinophils % (Auto) 0.3 % (0.0-7.0); Hematocrit 40.1 % (41.0-55.0); Hemoglobin 13.6 g/dL (13.5-16.5); Lymphocytes # (Auto) 0.33 K/mcL (1.50-4.80); Lymphocytes % (Auto) 11.5 % (15.0-49.0); Mean Cell Volume 89.7 fL (80.0-100.0); Mean Corpuscular HGB Conc 33.9 g/dL (31.0-36.0); Mean Platelet Volume 9.8 fL (7.4-10.4); Monocytes # (Auto) 0.13 K/mcL (0.10-0.90); Monocytes % (Auto) 4.5 % (1.0-12.0); Neutrophils % (Auto) 83.4 % (38.0-78.0); Platelet Count 134 K/mcL (140-440); RBC 4.47 M/mcL (4.50-5.90); Red Cell Distribution Width 11.3 % (11.5-14.5); WBC 2.9 K/mcL (4.5-11.0)
[2021-03-26 07:59] LABS: ALT/SGPT 17 U/L (<40); AST/SGOT 23 U/L (<40); Albumin 2.7 gm/dL (3.2-5.2); Albumin/Globulin Ratio 0.8 (1.0-2.3); Alkaline Phosphatase 57 U/L (39-117); Bilirubin,Total 0.6 mg/dL (0.1-1.0); Blood Urea Nitrogen 15 mg/dL (6-20); Calcium 8.3 mg/dL (8.6-10.4); Carbon Dioxide 26 mmol/L (22-30); Chloride 98 mmol/L (96-108); Ferritin 855.3 ng/mL (30.0-400.0); Globulin 3.3 gm/dL (2.2-3.7); Glomerular Filtration Rate 129; Glucose 140 mg/dL (70-105); Lactate Dehydrogenase 581 U/L (135-225)
[2021-03-26 08:02] LABS: ALT/SGPT 17 U/L (<40); AST/SGOT 24 U/L (<40); Albumin 2.8 gm/dL (3.2-5.2); Albumin/Globulin Ratio 0.8 (1.0-2.3); Alkaline Phosphatase 55 U/L (39-117); Bilirubin,Direct 0.3 mg/dL (<0.3); Bilirubin,Total 0.7 mg/dL (0.1-1.0); Blood Urea Nitrogen 15 mg/dL (6-20); Calcium 8.4 mg/dL (8.6-10.4); Carbon Dioxide 26 mmol/L (22-30); Chloride 99 mmol/L (96-108); Globulin 3.3 gm/dL (2.2-3.7); Glomerular Filtration Rate 142; Glucose 139 mg/dL (70-105); Lactate Dehydrogenase 583 U/L (135-225); Phosphorous 3.6 mg/dL (2.5-4.5); Triglycerides 52 mg/dL (<150); Uric Acid 3.3 mg/dL (2.5-8.0)
[2021-03-26 08:13] LABS: Fibrinogen 575 mg/dL (200-400); INR 1.3 (0.9-1.1); Prothrombin Time 16.7 sec (11.9-14.5)
[2021-03-26] MEDS: INSULIN LISPRO 1 UNIT/0.01 ML UNIT SQ SCH ×3 (08:25→17:53)
[2021-03-26] MEDS ORDERED: ENOXAPARIN 120 MG/0.8 ML SYRINGE SQ SCH (09:00)
[2021-03-26] MEDS ORDERED: DEXAMETHASONE 10 MG/ML VIAL IV SCH (09:00)
--- NOTE | 2021-03-26 09:23 | Internal Med Progress Note ---
SUBJECTIVE Subjective Patient information: Note initiated : 03/26/21 at 9:18 am Service Date, if different from initiated Date: [] Patient: Roland Lamas a 45 y/o M admitted on 03/20/21 for short of breath. Chief Complaint: [CoVID pneumonia] Interval history: History of present illness: Mr. Lamas is a 45 year old M Patient presents to ED with fever cough shortness of breath. He was diagnosed on March 13 with COVID-19 and has other family members tested positive as well. Several days later developed headache and in the past few days has the previously mentioned complaints. In the ED is on 4 L of oxygen with sats mid 90s. Labs also show hyponatremia and hyperglycemia. Patient denies history of diabetes. Also hypertensive and denies history of hypertension. The patient has not seen a PCP in 14 years. No leukocytosis but does have a mildly elevated procalcitonin. 03/21 states he feels about the same as yesterday. On 3.5 L nasal cannula but desats with exertion. Minimal cough. Newly diagnosed diabetes. 03/22 Patient appears comfortable and says he feels about the same. Has some coughing when he takes a deep breath but otherwise minimal cough. Shortness of breath about the same. He is on high flow nasal cannula at 8 to 9 L. 03/23 Oxygen supplementation was tried outpatients nose and throat feel like he was plugged up. Changed to Vapotherm with FiO2 of 60% a few minutes ago. Patient does admit to feeling more short of breath than yesterday. Has a mildly productive cough. Responded well to ACTH stimulation test. 03/24 Patient on BiPAP was on 6% but weaned down to 40 although did bump up to 50% again. Patient states overall he feels like he can breathe a little better than yesterday. Still has cough. 03/25 Patient was on BiPAP at 50% last night and did become short of breath through the night but once she was placed in prone position he felt much better. This morning he is comfortable and was doing well on 50% BiPAP. Temporarily changed to Vapotherm for breakfast. Occasional productive cough. 03/26: Patient was on BiPAP FiO2 55%, IPAP/EPAP 14/12, and been prone overnight. Afebrile. c/o slightly improving shortness of breath. c/o productive cough, unknown color of sputum. Denies chest pain. Denies fever or chills or sweating. Constitutional Vitals: Vital Signs Temp Pulse Resp BP Pulse Ox 36.7 C 95 H 15 163/98 93 03/26/21 07:15 03/26/21 08:24 03/26/21 08:24 03/26/21 08:09 03/26/21 08:24 Period Temp Pulse Resp BP Sys/Jurado Pulse Ox Last 24 Hr 36.3 C-36.8 C 64-117 14-37 128-173/89-104 90-100 Intake and Output 03/25/21 03/26/21 03/26/21 21:59 05:59 13:59 Intake Total 250 0 Output Total 0 Balance 250 0 Weight 118.206 kg Intake & Output: Intake & Output 03/25/21 03/26/21 03/26/21 21:59 05:59 13:59 Intake Total 250 0 Output Total 0 Balance 250 0 Weight 118.206 kg Intake: IV 250 Veklury 100 mg In Sodium 250 Chloride 0.9% 250 ml @ 500 mls/ hr IV Q24H [facility] Rx#:[id number] Oral 0 Output: Void Amount 0 Other: Meal Dinner Percent of Meal Consumed 25% Urine Appearance Clear Urine Color Dark Yellow Dark Yellow Urine Odor Normal Stool Size Small Stool Color Brown Stool Consistency Formed # Voids 1 # Bowel Movements 1 0 General appearance: cooperative and no acute distress Exam: prone Head Head exam: Present atraumatic and normocephalic Eye Eye exam: Present EOMI and PERRL ENT ENT exam: Present mucous membranes moist, normal exam and normal external ear exam Additional comments: BiPAP in place Neck Neck exam: Present normal inspection; Absent lymphadenopathy, tenderness and thyromegaly Respiratory Respiratory exam: Absent accessory muscle use, respiratory distress and wheezes Additional comments: Decreased breath sound across all lung gonzalez. Cardiovascular Cardiovascular exam: Present normal rate and rhythm; Absent JVD GI/Abdominal GI/Abdominal exam: Present normal bowel sounds and soft; Absent organomegaly and tenderness Rectal Rectal exam: Present deferred Extremities Exam Extremities exam: Present full ROM, normal capillary refill and normal inspection; Absent tenderness Neurological Exam Neurological exam: Present alert, CN II-XII intact and oriented X3; Absent motor sensory deficit Psychiatric Psychiatric exam: Present normal affect and normal mood; Absent anxious and depressed Skin Skin exam: Present dry and intact OBJ DATA Labs CBC & Chem 7: 03/26/21 05:49 03/26/21 05:51 Labs: Abnormal Lab Results 03/26/21 03/26/21 03/26/21 05:51 05:49 05:49 WBC RBC Hct RDW Plt Count Neut % (Auto) Lymph % (Auto) Lymph # (Auto) Graham # (Auto) PT 16.7 H INR 1.3 H Fibrinogen 575 H D-Dimer > 20.0 H ABG pH ABG pCO2 ABG pO2 ABG O2 Saturation ABG Methemoglobin Potassium Creatinine 0.4 L Glucose 139 H Calcium 8.4 L Ferritin Direct Bilirubin 0.3 H Lactate Dehydrogenase 583 H C-Reactive Protein 19.50 H Albumin 2.8 L Albumin/Globulin Ratio 0.8 L Procalcitonin 0.60 H 03/26/21 03/26/21 03/25/21 05:49 05:48 14:29 WBC 2.9 L RBC 4.47 L Hct 40.1 L RDW 11.3 L Plt Count 134 L Neut % (Auto) 83.4 H Lymph % (Auto) 11.5 L Lymph # (Auto) 0.33 L Graham # (Auto) PT INR Fibrinogen D-Dimer ABG pH 7.51 H ABG pCO2 33.7 L ABG pO2 63.9 L ABG O2 Saturation 93.3 L ABG Methemoglobin 0.3 L Potassium Creatinine 0.5 L Glucose 140 H Calcium 8.3 L Ferritin 855.3 H Direct Bilirubin Lactate Dehydrogenase 581 H C-Reactive Protein 19.00 H Albumin 2.7 L Albumin/Globulin Ratio 0.8 L Procalcitonin 03/25/21 03/25/21 03/25/21 05:40 05:39 05:39 WBC 2.5 L RBC 4.44 L Hct 39.3 L RDW 11.3 L Plt Count Neut % (Auto) 81.7 H Lymph % (Auto) 14.2 L Lymph # (Auto) 0.35 L Graham # (Auto) 0.09 L PT INR Fibrinogen D-Dimer ABG pH ABG pCO2 ABG pO2 ABG O2 Saturation ABG Methemoglobin Potassium Creatinine 0.5 L Glucose 140 H Calcium 8.2 L Ferritin 962.5 H Direct Bilirubin Lactate Dehydrogenase C-Reactive Protein 11.80 H Albumin Albumin/Globulin Ratio Procalcitonin 03/24/21 03/24/21 03/24/21 05:44 05:24 05:24 WBC 4.3 L RBC 4.46 L Hct 39.2 L RDW 11.3 L Plt Count Neut % (Auto) 83.9 H Lymph % (Auto) 12.4 L Lymph # (Auto) 0.53 L Graham # (Auto) PT INR Fibrinogen D-Dimer ABG pH ABG pCO2 ABG pO2 ABG O2 Saturation ABG Methemoglobin Potassium 3.2 L Creatinine 0.6 L Glucose 161 H Calcium 8.3 L Ferritin 1066.0 H Direct Bilirubin Lactate Dehydrogenase C-Reactive Protein 6.50 H Albumin Albumin/Globulin Ratio Procalcitonin Meds: Medications Acetaminophen (Acetaminophen 325 Mg Tablet) 650 mg PO Q6HP PRN PRN Reason: PAIN/FEVER > 101 Albuterol/Ipratropium (Ipratropium/Albuterol 3 Ml Ampul.Neb) 3 ml NEB Q4HP PRN PRN Reason: Shortness Of Breath Albuterol/Ipratropium (Ipratropium/Albuterol Sulfate 1 Puff Inhaler) 2 puff INH QID PRN PRN Reason: dyspnea Last Admin: 03/25/21 17:31 Dose: 2 puff Documented by: Amlodipine Besylate (Amlodipine 5 Mg Tablet) 5 mg PO DAILY [facility] Last Admin: 03/25/21 09:13 Dose: 5 mg Documented by: Clonidine HCl (Clonidine Hcl 0.1 Mg Tablet) 0.1 mg PO Q4HP PRN PRN Reason: Hypertension sbp>150 Last Admin: 03/25/21 02:01 Dose: 0.1 mg Documented by: Dexamethasone (Dexamethasone 10 Mg/Ml Vial) 6 mg IV DAILY [facility] Dextrose (Dextrose 50% 50 Ml Vial) 0 ml IV UD PRN PRN Reason: Hypoglycemia Diagnostic Test (Pha) (Accu-Chek 1 Each Strip) 1 each FS ACHS [facility] Last Admin: 03/26/21 08:25 Dose: 1 each Documented by: Enoxaparin Sodium (Enoxaparin 40 Mg/0.4 Ml Syringe) 40 mg SQ BID [facility] Last Admin: 03/25/21 21:48 Dose: 40 mg Documented by: Glucose (Dextrose 31 Gm Oral.Susp) 15 gm PO PRN PRN PRN Reason: Hypoglycemia Hydralazine HCl (Hydralazine 20 Mg/Ml Vial) 0 mg IV Q2HP PRN PRN Reason: Hypertension Last Admin: 03/24/21 11:40 Dose: 10 mg Documented by: Potassium Chloride 40 meq/ (Dextrose) 520 mls @ 130 mls/hr IV UD PRN PRN Reason: Potassium < 3 Magnesium Sulfate (Magnesium Sulfate) 2 gm in 50 mls @ 50 mls/hr IV UD PRN PRN Reason: Magnesium </= 1.6 Ceftriaxone Sodium 2 gm/ (Dextrose) 50 mls @ 100 mls/hr IV DAILY [facility]; Protocol Last Infusion: 03/25/21 10:38 Dose: Infused Documented by: REMDESIVIR 100 mg/ Sodium (Chloride) 250 mls @ 500 mls/hr IV Q24H [facility] Stop: 03/29/21 14:01 Last Infusion: 03/25/21 15:39 Dose: Infused Documented by: Insulin Glargine (Insulin Glargine, Human 1 Unit/0.01 Ml) 42 unit SQ DAILY [facility] Last Admin: 03/25/21 09:13 Dose: 42 units Documented by: Insulin Human Lispro (Insulin Lispro 1 Unit/0.01 Ml Unit) 0 unit SQ ACHS [facility]; Protocol Last Admin: 03/26/21 08:25 Dose: Not Given Documented by: Labetalol HCl (Labetalol 5 Mg/Ml Ml) 0 mg IV Q2HP PRN PRN Reason: Hypertension Last Admin: 03/24/21 06:50 Dose: 10 mg Documented by: Lorazepam (Lorazepam 2 Mg/Ml Vial) 0.5 mg IV Q4HP PRN PRN Reason: ANXIETY/SEDATION Last Admin: 03/24/21 01:03 Dose: 0.5 mg Documented by: Metformin HCl (Metformin 500 Mg Tab.Xl.24h) 500 mg PO BIDCC [facility] Last Admin: 03/25/21 17:34 Dose: 500 mg Documented by: Ondansetron HCl (Ondansetron 4 Mg/2 Ml Vial) 4 mg IV Q4HP PRN PRN Reason: Nausea And Vomiting Polyethylene Glycol (Polyethylene Glycol 3350 17 Gm Packet) 17 gm PO DAILYP PRN PRN Reason: Constipation Potassium Chloride (Potassium Chloride 20 Meq Tablet) 40 meq PO UD PRN PRN Reason: Potssium is 3-3.5 Last Admin: 03/24/21 08:15 Dose: 40 meq Documented by: Potassium Chloride (Potassium Chloride 20 Meq Tablet) 40 meq PO UD PRN PRN Reason: Potassium < 3 Senna (Sennosides 1 Tablet) 2 tab PO DAILYP PRN PRN Reason: Constipation Sodium Chloride (0.9 % Sodium Chloride 10 Ml Syringe) 10 ml IV Q8 [facility] Last Admin: 03/26/21 05:57 Dose: 10 ml Documented by: Zinc Sulfate (Zinc Sulfate 50 Mg Capsule) 50 mg PO DAILY [facility] Last Admin: 03/25/21 09:13 Dose: 50 mg Documented by: ABG Interpretation ABG results: 03/25/21 14:29 ABG pH 7.51 H ABG pCO2 33.7 L ABG pO2 63.9 L ABG HCO3 26.0 ABG Total CO2 27.0 ABG O2 Saturation 93.3 L ABG Base Excess 3 ABG Methemoglobin 0.3 L A/P Assessment and plan (1) Pneumonia due to COVID-19 virus: Status: Acute (2) Acute respiratory distress syndrome (ARDS) due to 2019 novel coronavirus: Status: Acute (3) T2DM (type 2 diabetes mellitus): Status: Acute (4) Essential (primary) hypertension: Status: Acute Narrative A/P Narrative: Assessment and Plans: 1. CoVID pneumonia with superimposing bacterial infection Stays in inpatient ICU with telemetry Isolation: airborne and contact Daily inflammatory markers cbc w/ auto diff in the mornint to trend WBC Proning 16 hours per day BiPAP, decrease IPAP/EPAP slightly to protect against barotrauma: 07/27. Currently FiO2 of 55% Finished Zithromax Rocephin Remdesivir, will do 10 day total course of therapy Dexamethasone Lasix Lovenox 1mg/kg BID 2. Essential HTN: Amlodipine Hydralazine IV PRN uncontrolled blood pressure 3. T2DM: HgA1c Metformin Insulin Lantus 42 qAM Insulin Lispro SSI Accu Chek AC HS Hypoglycemia protocol Diabetic diet GI ppx: not currently indicated DVT ppx: Lovenox Code status: Full Prognosis: Extremely guarded Disposition: Inpatient ICU Critical Care Time: 45min Time Spent With Patient Time: Total time spent is greater than 50% in coordination of care (as documented) at patient's floor/unit and/or counseling patient: Total time spent with greater than 50% in coordination of care (as documented) at patient's floor/unit and/or counseling patient:: Greater than 35 minutes
[2021-03-26] MEDS: ZINC SULFATE 50 MG CAPSULE PO SCH (09:33)
[2021-03-26] MEDS: amLODIPine 5 MG TABLET PO SCH (09:33)
[2021-03-26] MEDS: metFORMIN 500 MG TAB.XL.24H PO SCH ×2 (09:33→19:04)
[2021-03-26] MEDS: INSULIN GLARGINE, HUMAN 1 UNIT/0.01 ML SQ SCH (09:33)
[2021-03-26] MEDS: cefTRIAXone 2 GM in DEXTROSE 5% IN WATER 50 ML IV SCH (09:34)
[2021-03-26] MEDS: hydrALAZINE 20 MG/ML VIAL IV PRN (10:34)
[2021-03-26] MEDS: LORazepam 2 MG/ML VIAL IV PRN ×2 (13:05→17:51)
[2021-03-26] MEDS: REMDESIVIR 100 MG in 0.9 % SODIUM CHLORIDE 250 ML IV SCH (13:26)
--- NOTE | 2021-03-26 14:20 | Discharge Summary ---
Discharge Provider Provider Patient information: Note initiated : 03/26/21 at 2:16 pm Service Date, if different from initiated Date: [] Patient: Roland Lamas 45 y/o M admitted on 03/20/21 for short of breath. Chief Complaint: [CoVID pneumonia] Date of admission: 03/20/21 17:20 Discharge date: 03/26/21 Consults: 03/20/21 Consult to Physician [CONS] Stat Comment: Consulting Provider: Clifford Marvin Reason For Exam: Physician to Consult Discharge Meds Discharge Medications Home Medications No Known Home Meds 03/20/21 [History Confirmed 03/20/21 Last Taken Unknown] COURSE Hospital Course Hospital course: Patient was admitted on March 20, 2021 for Covid pneumonia. Chest x-ray and chest CT both showed severe disease burden with bilateral groundglass appearance of the lungs. Remdesivir, dexamethasone, antibiotics including Rocephin and Zithromax, diuretics in terms of Lasix, and anticoagulation in terms of the note from [facility] were provided. Oxygen and ventilation support for severe nasal cannula, then high flow oxygen, and then BiPAP were all provided. Diabetes and hypertension's were also being controlled by insulin therapy and antihypertensives, respectively. Patient is continue to deteriorate clinically. I finally got the chest spoke with machinist [employer] from [facility] who agree that patient should be electively intubated and transfer for higher level of care. Such procedure was done on the , and the patient was eventually being transferred third year for continuation of treatment for his Covid pneumonia. Discharge diagnosis: CoVID pnuemonia Time Spent with Patient Time attestation: Total time spent providing and/or coordinating discharge services: Patient was admitted on March 20, 2021 for Covid pneumonia. Chest x-ray and chest CT both showed severe disease burden with bilateral groundglass appearance of the lungs. Remdesivir, dexamethasone, antibiotics including Rocephin and Zithromax, diuretics in terms of Lasix, and anticoagulation in terms of the note from [facility] were provided. Oxygen and ventilation support for severe nasal cannula, then high flow oxygen, and then BiPAP were all provided. Diabetes and hypertension's were also being controlled by insulin therapy and antihypertensives, respectively. Patient is continue to deteriorate clinically. I finally got the chest spoke with machinist automotive from [place] who agree that patient should be electively intubated and transfer for higher level of care. Such procedure was done on the , and the patient was eventually being transferred third year for continuation of treatment for his Covid pneumonia. EXAM Constitutional Vitals: Temp Pulse Resp BP Pulse Ox 36.8 C 96 H 21 149/104 96 03/26/21 11:23 03/26/21 14:00 03/26/21 14:00 03/26/21 14:00 03/26/21 14:00 General appearance: cooperative and no acute distress Exam: prone Head Head exam: Present atraumatic and normocephalic Eye Eye exam: Present EOMI and PERRL ENT ENT exam: Present mucous membranes moist, normal exam and normal external ear exam Additional comments: BiPAP in place Neck Neck exam: Present normal inspection; Absent lymphadenopathy, tenderness and thyromegaly Respiratory Respiratory exam: Present rhonchi and wheezes; Absent accessory muscle use and respiratory distress Cardiovascular Cardiovascular exam: Present normal rate and rhythm; Absent JVD GI/Abdominal GI/Abdominal exam: Present normal bowel sounds and soft; Absent organomegaly and tenderness Rectal Rectal exam: Present deferred Extremities Exam Extremities exam: Present full ROM, normal capillary refill and normal inspection; Absent tenderness Neurological Exam Neurological exam: Present alert, CN II-XII intact and oriented X3; Absent motor sensory deficit Psychiatric Psychiatric exam: Present normal affect and normal mood; Absent anxious and depressed Skin Skin exam: Present dry and intact Discharge Data Data Completed and Pending Labs on day of discharge: Labs from last 24 hours 03/26/21 03/26/21 03/26/21 05:51 05:49 05:49 WBC RBC Hgb Hct MCV MCH MCHC RDW Plt Count MPV Neut % (Auto) Lymph % (Auto) Gaines % (Auto) Eos % (Auto) Baso % (Auto) Lymph # (Auto) Gaines # (Auto) Eos # (Auto) Baso # (Auto) Absolute Neutrophils PT 16.7 H INR 1.3 H Fibrinogen 575 H D-Dimer > 20.0 H Patient Temperature ABG pH ABG pH (Temp Correct) ABG pCO2 ABG pCO2 (Temp Corrct ABG pO2 ABG pO2 (Temp Correct ABG HCO3 ABG Total CO2 ABG O2 Saturation ABG Base Excess ABG Methemoglobin Carboxyhemoglobin Total Hemoglobin Respiration Rate O2 Delivery Method Vent Mode FiO2 Tidal Volume PEEP Sodium 137 Potassium 4.0 Chloride 99 Carbon Dioxide 26 Anion Gap 12.0 BUN 15 Creatinine 0.4 L GFR Calculation 142 Glucose 139 H Uric Acid 3.3 Calcium 8.4 L Phosphorus 3.6 Magnesium 2.1 Ferritin Total Bilirubin 0.7 Direct Bilirubin 0.3 H GGT 25 AST 24 ALT 17 Alkaline Phosphatase 55 Lactate Dehydrogenase 583 H C-Reactive Protein 19.50 H Total Protein 6.1 Albumin 2.8 L Globulin 3.3 Albumin/Globulin Ratio 0.8 L Triglycerides 52 Procalcitonin 0.60 H 03/26/21 03/26/21 03/25/21 05:49 05:48 14:29 WBC 2.9 L RBC 4.47 L Hgb 13.6 Hct 40.1 L MCV 89.7 MCH 30.4 MCHC 33.9 RDW 11.3 L Plt Count 134 L MPV 9.8 Neut % (Auto) 83.4 H Lymph % (Auto) 11.5 L Gaines % (Auto) 4.5 Eos % (Auto) 0.3 Baso % (Auto) 0.3 Lymph # (Auto) 0.33 L Gaines # (Auto) 0.13 Eos # (Auto) 0.01 Baso # (Auto) 0.01 Absolute Neutrophils 2.39 PT INR Fibrinogen D-Dimer Patient Temperature Pending ABG pH 7.51 H ABG pH (Temp Correct) Pending ABG pCO2 33.7 L ABG pCO2 (Temp Corrct Pending ABG pO2 63.9 L ABG pO2 (Temp Correct Pending ABG HCO3 26.0 ABG Total CO2 27.0 ABG O2 Saturation 93.3 L ABG Base Excess 3 ABG Methemoglobin 0.3 L Carboxyhemoglobin 1.3 Total Hemoglobin 15.0 Respiration Rate Pending O2 Delivery Method Pending Vent Mode Pending FiO2 Pending Tidal Volume Pending PEEP Pending Sodium 136 Potassium 3.9 Chloride 98 Carbon Dioxide 26 Anion Gap 12.0 BUN 15 Creatinine 0.5 L GFR Calculation 129 Glucose 140 H Uric Acid Calcium 8.3 L Phosphorus Magnesium Ferritin 855.3 H Total Bilirubin 0.6 Direct Bilirubin GGT AST 23 ALT 17 Alkaline Phosphatase 57 Lactate Dehydrogenase 581 H C-Reactive Protein 19.00 H Total Protein 6.0 Albumin 2.7 L Globulin 3.3 Albumin/Globulin Ratio 0.8 L Triglycerides Procalcitonin Discharge Plan Patient/Caregiver Discharge Instructions Activity: increase activity as tolerated Diet: Regular Diet Prescriptions: No Action No Known Home Meds RF: 0 Follow Up Plan Patient Disposition: Xfer Other Prognosis: Fair Rehab Potential: Fair I certify that the patient requires SNF services: No Overall status at discharge: patient is not back to baseline Discharge Orders: Discharge Order (Routine); Ordered 03/26/21 Ordered By: Kushal Mccabe
[2021-03-26] MEDS ORDERED: fentaNYL 2,500 MCG in 0.9 % SODIUM CHLORIDE 200 ML IV SCH (14:30)
[2021-03-26] MEDS: PROPOFOL 1,000 MG in PREMIX 1 BAG IV SCH ×2 (14:55→17:00)
[2021-03-26] MEDS ORDERED: 0.9 % SODIUM CHLORIDE 250 ML IV SCH (15:00)
--- NOTE | 2021-03-26 16:00 | XRay Report ---
INDICATION: intubation TECHNIQUE: AP portable semiupright chest x-ray COMPARISON: Previous chest x-ray dated 03/20/2021. Previous CT scan dated 03/25/2021 FINDINGS:There is an esophagogastric tube in the stomach. There is an endotracheal tube with its tip 4 cm above the coral. Lungs:Bilateral diffuse pulmonary parenchymal infiltrates, left worse than right. There has been significant interval progression and worsening since 03/20/2021. Findings remain consistent with Covid pneumonia Heart, vascular:No significant cardiomegaly. Pulmonary vascularity is normal. No pulmonary edema or pulmonary congestion Mediastinum, juan miguel:No mediastinal widening. No hilar mass Pleura:No pleural fluid. No pleural-based mass or calcification Skeletal:Negative. IMPRESSION: 1. Endotracheal tube tip 4 cm above the coral 2. Bilateral diffuse pulmonary parenchymal infiltrates with significant interval progression since 03/20/2021 Interpreted and Authenticated by: Roland Winters 03/26/21
--- NOTE | 2021-03-26 16:26 | XRay Report ---
INDICATION: new NG tube. TECHNIQUE: Supine abdomen. COMPARISON: None FINDINGS:Esophagogastric tube with its tip in the stomach. There is colonic gas. No dilated gas-filled small bowel IMPRESSION: Esophagogastric tube in the stomach Interpreted and Authenticated by: Roland Winters 03/26/21
--- NOTE | 2021-03-26 17:11 | General Surgery Procedure Note ---
Date of procedure: Note initiated : 03/26/21 at 5:08 pm Service Date, if different from initiated Date: I was asked to intubate for transport to a higher level facility> dt covid pneumonia. pt given 100% FI02 via bipap for 4 minutes prior to induction. 9mg of versed, 100mcg of fentanyl, 200 mg propofol, and 150mg sux given. [place] scope was used without difficulty. 8.0 ETT easily passed with + ETCO2. BBS present no complications noted
== END 2021-03-26 18:30 | disposition other institution (70) | DRG 208 ==
LOC: ED 11:54 → ICU 17:20
PROVIDERS: ADMIT Internal Medicine; ATTEND Internal Medicine